=== PATIENT | female | born 1940 | race Caucasian/White ===

== ENCOUNTER 2019-06-19 14:54 | Inpatient (IN) | payer MEDICARE, OTHER ==
[2019-06-19] MEDS ORDERED: NORMAL SALINE 1000 ML 1,000 ML IV ONE (15:33)
--- NOTE | 2019-06-19 15:37 | ER Document Report ---
ED Medical Screen (RME) - General Chief Complaint: Altered Mental Status Stated Complaint: POSSIBLE URINARY ISSUE Time Seen by Provider: 06/19/19 15:26 Primary Care Provider: MAYO RATLIFF MD [Primary Care Provider] - Follow up as needed Mode of Arrival: Wheelchair Information source: Relative Notes: Patient presents with family members who state that patient has been confused for the past 6 days. Family member states that she has had urinary frequency and diarrhea. Patient has had malodorous urine and has had frequent falls recently. Patient does not take any anticoagulants. Family member state that she has been acting aggressive which is not normal for her. Family is concerned that she may have a UTI which is causing her symptoms. Family is also concerned that she is dehydrated as she has had decreased oral intake. Patient does have a history of dementia although behavior is abnormal for her baseline. hx: Dementia, TIA, arthritis, diverticulitis I have greeted and performed a rapid initial assessment of this patient. A comprehensive ED assessment and evaluation of the patient, analysis of test results and completion of the medical decision making process will be conducted by additional ED providers. TRAVEL OUTSIDE OF THE [place] IN LAST 30 DAYS: No - Related Data Allergies/Adverse Reactions: clarithromycin [From Biaxin] Adverse Reaction (Unknown, Verified 06/19/19 15:26) codeine [Codeine] Adverse Reaction (Unknown, Verified 06/19/19 15:26) Home Medications: Memantine. Donepezil. Vitamin D3 Past Medical History - Social History Chew tobacco use (# tins/day): No Frequency of alcohol use: None Drug Abuse: None - Past Medical History Cardiac Medical History: Denies: Hx Heart Attack, Hx Hypertension Pulmonary Medical History: Denies: Hx Asthma Neurological Medical History: Denies: Hx Cerebrovascular Accident, Hx Seizures GI Medical History: Denies: Hx Hepatitis, Hx Hiatal Hernia, Hx Ulcer Infectious Medical History: Denies: Hx Hepatitis Past Surgical History: Denies: Hx Mastectomy, Hx Open Heart Surgery, Hx Pacemaker Physical Exam - Vital signs Vitals: Temp Pulse Resp BP Pulse Ox 98.7 F 45 L 16 129/61 H 90 L 06/19/19 15:03 06/19/19 15:03 06/19/19 15:03 06/19/19 15:03 06/19/19 15:03 - General General appearance: Alert Notes: Confused, abrasion to back area, bruising to right knee Course - Vital Signs Vital signs: Temp Pulse Resp BP Pulse Ox 98.7 F 45 L 16 129/61 H 90 L 06/19/19 15:03 06/19/19 15:03 06/19/19 15:03 06/19/19 15:03 06/19/19 15:03 Doctor's Discharge - Discharge Referrals: MAYO RATLIFF MD [Primary Care Provider] - Follow up as needed
--- NOTE | 2019-06-19 16:04 | ER Document Report ---
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 She has relatively advanced dementia but was able to function reasonably at home until last week. She has had increasing generalized weakness for a week and urinary incontinence for 6 days. Stopped eating well 5 days ago and last few days not really eating. Continues to smoke. No fever. Son with Flu but she has not had flu symptoms. TRAVEL OUTSIDE OF THE [place] IN LAST 30 DAYS: No - Related Data Allergies/Adverse Reactions: clarithromycin [From Biaxin] Adverse Reaction (Unknown, Verified 06/19/19 15:26) codeine [Codeine] Adverse Reaction (Unknown, Verified 06/19/19 15:26) Home Medications: Memantine. Donepezil. Vitamin D3 Past Medical History - General Information source: Relative - Social History Smoking Status: Current Every Day Smoker Chew tobacco use (# tins/day): No Frequency of alcohol use: None Drug Abuse: None Family History: Reviewed & Not Pertinent Patient has suicidal ideation: No Patient has homicidal ideation: No - Past Medical History Cardiac Medical History: Denies: Hx Heart Attack, Hx Hypertension Pulmonary Medical History: Denies: Hx Asthma Neurological Medical History: Denies: Hx Cerebrovascular Accident, Hx Seizures GI Medical History: Denies: Hx Hepatitis, Hx Hiatal Hernia, Hx Ulcer Infectious Medical History: Denies: Hx Hepatitis Past Surgical History: Denies: Hx Mastectomy, Hx Open Heart Surgery, Hx Pacemaker Review of Systems - Review of Systems Constitutional: No symptoms reported EENT: No symptoms reported Cardiovascular: No symptoms reported Respiratory: No symptoms reported Gastrointestinal: No symptoms reported Genitourinary: No symptoms reported Female Genitourinary: No symptoms reported Musculoskeletal: No symptoms reported Skin: No symptoms reported Hematologic/Lymphatic: No symptoms reported Neurological/Psychological: No symptoms reported Physical Exam - Vital signs Vitals: Temp Pulse Resp BP Pulse Ox 98.7 F 45 L 16 129/61 H 90 L 06/19/19 15:03 06/19/19 15:03 06/19/19 15:03 06/19/19 15:03 06/19/19 15:03 Interpretation: Normal - General General appearance: Alert, Anxious, Other - Frail cachectic female in no distre ss. Confused at baseline but alert.. No: Appears well In distress: None - HEENT Head: Normocephalic, Atraumatic Eyes: Normal Pupils: PERRL - Respiratory Respiratory status: No respiratory distress Chest status: Nontender Breath sounds: Normal Chest palpation: Normal - Cardiovascular Rhythm: Regular Heart sounds: Normal auscultation Murmur: No - Abdominal Inspection: Normal Distension: No distension Bowel sounds: Normal Tenderness: Nontender Organomegaly: No organomegaly - Back Back: Normal, Nontender - Extremities General upper extremity: Normal inspection, Tender - right shoulder with decreased ROM and ? pain with movement. Difficult to tell and likely OA is present., Normal color, Normal ROM, Normal temperature General lower extremity: Normal inspection, Tender - tender knees bilat without deformity. + bruising., Normal color, Normal ROM, Normal temperature, Normal weight bearing. No: Jose's sign - Neurological Neuro grossly intact: Yes Cognition: Normal Orientation: AAOx4 [place] Coma Scale Eye Opening: Spontaneous Janice Coma Scale Verbal: Oriented Ajnice Coma Scale Motor: Obeys Commands Janice Coma Scale Total: 15 Speech: Normal Motor strength normal: LUE, RUE, LLE, RLE Sensory: Normal - Psychological Associated symptoms: Normal affect, Normal mood - Skin Skin Temperature: Warm Skin Moisture: Dry Skin Color: Normal Course - Re-evaluation Re-evalutation: 06/19/19 18:35 MDM This frail cachectic malnourished appearing female arrives from home with complaints of not acting her baseline. Due to that and falling frequently along with likely frail bridging dural veins I feel a ct of her head is reasonable in this lady. We have obtained one due to that. - Vital Signs Vital signs: Temp Pulse Resp BP Pulse Ox 99.4 F 45 L 21 H 131/104 H 95 06/19/19 19:12 06/19/19 15:03 06/19/19 16:33 06/19/19 16:33 06/19/19 16:52 - Laboratory Result Diagrams: 06/19/19 16:32 06/19/19 17:41 Laboratory results interpreted by me: 06/19/19 06/19/19 06/19/19 16:30 16:32 16:49 WBC 14.8 H RBC 5.65 H Hgb 17.2 H Hct 51.7 H RDW 14.3 H Seg Neuts % (Manual) 86 H Band Neutrophils % 2 L Lymphocytes % (Manual) 7 L Abs Neuts (Manual) 13.0 H Sodium Potassium Chloride BUN POC Glucose 138 H Total Bilirubin AST Alkaline Phosphatase Creatine Kinase Urine Protein 30 H Urine Ketones TRACE H Urine Blood MODERATE H Ur Leukocyte Esterase MODERATE H 06/19/19 17:41 WBC RBC Hgb Hct RDW Seg Neuts % (Manual) Band Neutrophils % Lymphocytes % (Manual) Abs Neuts (Manual) Sodium 147.2 H Potassium 3.5 L Chloride 112 H BUN 24 H POC Glucose Total Bilirubin 1.5 H AST 62 H Alkaline Phosphatase 127 H Creatine Kinase 409 H Urine Protein Urine Ketones Urine Blood Ur Leukocyte Esterase - Diagnostic Test Radiology reviewed: Reports reviewed - EKG Interpretation by Me EKG shows normal: Sinus rhythm Rate: Tachycardia - Sinus Nl [place] Repol Abnormality [address] elevation or depression my interpretation. Discharge - Discharge Clinical Impression: UTI (urinary tract infection), bacterial, Acute encephalopathy, Multiple contusions Disposition: ADMITTED INPATIENT Admitting Provider: [employer]CH[employer] Day Unit Admitted: Medical Floor
--- NOTE | 2019-06-19 16:26 | RADIOLOGY REPORT (SQ) ---
EXAM DESCRIPTION: SHOULDER RIGHT 2 OR MORE VIEWS COMPLETED DATE/TIME: 06/19/2019 4:14 pm REASON FOR STUDY: fall, shoulder inj COMPARISON: None. NUMBER OF VIEWS: Three views. TECHNIQUE: Internal rotation, external rotation, and Y view images acquired of the right shoulder. LIMITATIONS: None. FINDINGS: MINERALIZATION: Decreased. BONES: No acute fracture. No worrisome bone lesions. JOINTS: No dislocation. Mild glenohumeral and acromioclavicular osteoarthropathy. VISUALIZED LUNGS AND RIBS: No pneumothorax. No rib fracture. SOFT TISSUES: No radiopaque foreign body. OTHER: No other significant finding. IMPRESSION: No acute bony abnormality. Decreased osseous mineralization with mild acromioclavicular and glenohumeral osteoarthropathy. TECHNICAL DOCUMENTATION: JOB ID: [id number] [employer]- All Rights Reserved Reading location - IP/workstation name: [email or web address]
--- NOTE | 2019-06-19 16:28 | RADIOLOGY REPORT (SQ) ---
EXAM DESCRIPTION: CHEST 2 VIEWS COMPLETED DATE/TIME: 06/19/2019 4:14 pm REASON FOR STUDY: falls, AMS COMPARISON: None. EXAM PARAMETERS: NUMBER OF VIEWS: two views TECHNIQUE: Digital Frontal and Lateral radiographic views of the chest acquired. RADIATION DOSE: NA LIMITATIONS: none FINDINGS: LUNGS AND PLEURA: Chronic interstitial changes calcified right basilar granuloma. Emphyse matous with increased AP diameter. No pneumothorax. No large effusion. MEDIASTINUM AND HILAR STRUCTURES: No discrete mass. HEART AND VASCULAR STRUCTURES: Unfolded atherosclerotic thoracic aorta. Normal heart size. BONES: Decreased osseous mineralization. midthoracic compression deformity with greater than 60% ant erior height loss. HARDWARE: None in the chest. OTHER: No other significant finding. IMPRESSION: 1. Emphysematous change without definite acute cardiopulmonary process. 2. Midthoracic compression deformity with greater than 60% anterior height loss, chronicity uncertai n secondary to lack of priors. Recommend correlation with patient symptoms. TECHNICAL DOCUMENTATION: JOB ID: [id number] [employer]- All Rights Reserved Reading location - IP/workstation name: [email or web address]
--- NOTE | 2019-06-19 16:29 | RADIOLOGY REPORT (SQ) ---
EXAM DESCRIPTION: KNEE RIGHT 4 VIEWS COMPLETED DATE/TIME: 06/19/2019 4:14 pm REASON FOR STUDY: fall, r knee injury COMPARISON: None. NUMBER OF VIEWS: Four views. TECHNIQUE: AP, lateral, and both oblique radiographic images acquired of the right knee. LIMITATIONS: None. FINDINGS: MINERALIZATION: Decreased. BONES: No acute fracture or dislocation. No worrisome bone lesions. JOINT: No effusion. SOFT TISSUES: No soft tissue swelling. No radio-opaque foreign body. OTHER: No other significant finding. IMPRESSION: No evidence of acute bony abnormality of the right knee. TECHNICAL DOCUMENTATION: JOB ID: [id number] [employer]- All Rights Reserved Reading location - IP/workstation name: [email or web address]
--- NOTE | 2019-06-19 16:32 | RADIOLOGY REPORT (SQ) ---
EXAM DESCRIPTION: CT HEAD WITHOUT COMPLETED DATE/TIME: 06/19/2019 4:21 pm REASON FOR STUDY: fall, AMS COMPARISON: None. TECHNIQUE: Axial images acquired through the brain without intravenous contrast. Images reviewed wi th bone, brain and subdural windows. Additional sagittal and coronal reconstructions were generated. Images stored on PACS. All CT scanners at this facility use dose modulation, iterative reconstruction, and/or weight based d osing when appropriate to reduce radiation dose to as low as reasonably achievable (ALARA). [facility]: Dose Right [facility]: CareDose [facility]: Dose Right [facility]: Teradose 4D [facility]: Smart Voxware RADIATION DOSE: CT Rad equipment meets quality standard of care and radiation dose reduction techniq ues were employed. CTDIvol: 53.2 mGy. DLP: 937 mGy-cm.mGy. LIMITATIONS: None. FINDINGS: VENTRICLES: Prominent. CEREBRUM: No masses. No hemorrhage. No midline shift. Areas of low density in the white matter mos t likely due to chronic micro-vascular ischemic change. Hypoattenuation and encephalomalacia involvi ng the right temporal lobe most compatible with chronic infarct. No evidence for acute large vascula r territory infarction. CEREBELLUM: No masses. No hemorrhage. No alteration of density. No evidence for acute infarction. EXTRAAXIAL SPACES: Age-related involutional change. No fluid collections. No masses. ORBITS AND GLOBE: No intra- or extraconal masses. Normal contour of globe without masses. CALVARIUM: No fracture. PARANASAL SINUSES: No fluid or mucosal thickening. SOFT TISSUES: No mass or hematoma. OTHER: No other significant finding. IMPRESSION: CHRONIC RIGHT TEMPORAL INFARCT, PARENCHYMAL VOLUME LOSS AND SEQUELAE OF MICROANGIOPATHIC DISEASE. NO EVIDENCE OF ACUTE INTRACRANIAL PROCESS. EVIDENCE OF ACUTE STROKE: NO. TECHNICAL DOCUMENTATION: JOB ID: [id number] Quality ID # [id number]: Final reports with documentation of one or more dose reduction techniques (e.g., Au tomated exposure control, adjustment of the mA and/or kV according to patient size, use of iterative reconstruction technique) 2010 [email or web address]- All Rights Reserved Reading location - IP/workstation name: [email or web address]
[2019-06-19 17:04] LABS: HEMATOCRIT 51.7 % (36.0-47.0); HEMOGLOBIN 17.2 g/dL (12.0-15.5); MEAN CORPUSCULAR HEMOGLOBIN 30.4 pg (27.0-33.4); MEAN CORPUSCULAR HGB CONC 33.2 g/dL (32.0-36.0); MEAN CORPUSCULAR VOLUME 92 fl (80-97); PLATELET COUNT 319 10^3/uL (150-450); RED BLOOD COUNT 5.65 10^6/uL (3.72-5.28); RED CELL DISTRIBUTION WIDTH 14.3 % (11.5-14.0); WHITE BLOOD COUNT 14.8 10^3/uL (4.0-10.5)
[2019-06-19 17:22] LABS: ABSOLUTE MONOCYTES # (MANUAL) 0.7 10^3/uL (0.1-1.4); ANISOCYTOSIS SLIGHT; BAND NEUTROPHILS % (MANUAL) 2 % (3-5); BASOPHILS % (MANUAL) 0 % (0-2); EOSINOPHILS % (MANUAL) 0 % (0-6); LYMPHOCYTES % (MANUAL) 7 % (13-45); MONOCYTES % (MANUAL) 5 % (3-13); SEGMENTED NEUTROPHILS % (MAN) 86 % (42-78); TOTAL CELLS COUNTED 100
[2019-06-19 17:23] LABS: PLATELET COMMENT ADEQUATE
[2019-06-19 17:36] LABS: AMORPHOUS SEDIMENT,URINE TRACE /HPF; APPEARANCE,URINE SLIGHTLY-CLOUDY; BILIRUBIN,URINE NEGATIVE (NEGATIVE); COLOR,URINE YELLOW; GLUCOSE, URINE NEGATIVE (NEGATIVE); KETONES,URINE TRACE mg/dL (NEGATIVE); LEUKOCYTE ESTERASE,URINE MODERATE (NEGATIVE); NITRITE,URINE NEGATIVE (NEGATIVE); PROTEIN,URINE 30 mg/dL (NEGATIVE); URINE SPECIFIC GRAVITY 1.014; UROBILINOGEN,URINE NEGATIVE mg/dL (<2.0)
[2019-06-19] MEDS ORDERED: CEFTRIAXONE 1 GM/D5W RTU 1 GM/50 ML RTUPB IV ONE (17:43)
[2019-06-19 18:28] LABS: ANION GAP 10 (5-19); BILIRUBIN,DIRECT 0.4 mg/dL (0.0-0.4); BILIRUBIN,TOTAL 1.5 mg/dL (0.2-1.3); BLOOD UREA NITROGEN 24 mg/dL (7-20); CALCIUM 9.5 mg/dL (8.4-10.2); CARBON DIOXIDE 25 mmol/L (22-30); CHLORIDE 112 mmol/L (98-107); CREATINE KINASE 409 U/L (30-135); GLUCOSE 105 mg/dL (75-110); TOTAL PROTEIN 7.7 g/dL (6.3-8.2)
[2019-06-19] MEDS ORDERED: MAGNESIUM HYDROXIDE SUSP 30 ML UDCUP PO PRN (18:35)
[2019-06-19] MEDS ORDERED: NORMAL SALINE 1000 ML 1,000 ML IV PRN (18:35)
[2019-06-19] MEDS ORDERED: ACETAMINOPHEN 325 MG TABLET PO PRN (18:35)
[2019-06-19] MEDS ORDERED: ONDANSETRON HCL INJ/PF 4 MG/2 ML SDV IV PRN (18:35)
[2019-06-19 18:38] LABS: ALKALINE PHOSPHATASE 127 U/L (38-126); ASPARTATE AMINO TRANSFERASE 62 U/L (14-36); POTASSIUM 3.5 mmol/L (3.6-5.0)
--- NOTE | 2019-06-19 18:49 | PDOC H&P ---
History of Present Illness Admission Date/PCP: MAYO RATLIFF MD History of Present Illness: FITO RUFFIN is a 79 year old female who has a 7-year history of dementia,. Son gives me all of the history as patient is too confused and demented. Last week patient has been more confused however and is been falling more often.. He has actually seen the patient fall 3 times in the last week. Prior to this last week she was up and ambulatory even though she was demented. Somewhere in the last month she is also lost her dentures.. Patient is now mumbling which is a new physical finding and she is picking at her sheets. She smokes about a half a pack of cigarettes per day. Patient is a DNR. She is still currently lives at home but she has pretty much full-time caregivers. At time of discharge there may be some discussion about longterm facility. He has already been in this discussion. Patient's labs are not all back from the emergency room but I have gone ahead and admit her anyway, as it is 1845 hrs.. Count 14,800 H&H is stable Chemistry panel is pending. Urine shows moderate leukocytes moderate blood trace of ketones 30 protein Blood cultures and urine cultures are pending\ She will be admitted for IV gentle hydration broad-spectrum IV antibiotic. Son is aware that at the patient's medical condition and age this may be a life- threatening illness Past Medical History Cardiac Medical History: Denies: Myocardial Infarction, Hypertension Pulmonary Medical History: Denies: Asthma Neurological Medical History: Denies: Seizures GI Medical History: Denies: Hepatitis, Hiatal Hernia Hematology: Denies: Anemia, Sickle Cell Disease Past Surgical History Past Surgical History: Denies: Amputation, Mastectomy, Pacemaker Social History Smoking Status: Current Every Day Smoker Electronic Cigarette use?: No - Advance Directive Resuscitation Status: Do Not Resuscitate Family History Parental Family History Reviewed: No Children Family History Reviewed: No Sibling(s) Family History Reviewed.: No Medication/Allergy Home Medications: Aleve PRN 02/17/13 Allergies/Adverse Reactions: clarithromycin [From Biaxin] Adverse Reaction (Unknown, Verified 06/19/19 15:26) codeine [Codeine] Adverse Reaction (Unknown, Verified 06/19/19 15:26) Review of Systems Constitutional: PRESENT: weakness, weight loss Respiratory: ABSENT: cough, hemoptysis Gastrointestinal: ABSENT: abdominal pain, constipation, diarrhea, hematemesis, hematochezia, nausea, vomiting Genitourinary: PRESENT: other - Incontinent x6 days Physical Exam Vital Signs: Temp Pulse Resp BP Pulse Ox 98.7 F 45 L 21 H 131/104 H 95 06/19/19 15:03 06/19/19 15:03 06/19/19 16:33 06/19/19 16:33 06/19/19 16:52 Intake & Output 06/18/19 06/19/19 06/20/19 06:59 06:59 06:59 Intake Total 1000 Balance 1000 Weight 39.7 kg General appearance: PRESENT: mild distress, thin, other - Patient is mumbling and picking at the sheets patient does not seem to be aware of her surroundings. Son states that this is worse than usual Respiratory exam: PRESENT: clear to auscultation michelle. ABSENT: rales, rhonchi, wheezes Cardiovascular exam: PRESENT: RRR. ABSENT: diastolic murmur, rubs, systolic murmur Neurological exam: PRESENT: altered Psychiatric exam: PRESENT: other Results Laboratory Results: 06/19/19 16:32 06/19/19 17:41 06/19/19 06/19/19 06/19/19 16:32 16:32 16:49 WBC 14.8 H RBC 5.65 H Hgb 17.2 H Hct 51.7 H MCV 92 MCH 30.4 MCHC 33.2 RDW 14.3 H Plt Count 319 Seg Neutrophils % Not Reportable Sodium Cancelled Potassium Cancelled Chloride Cancelled Carbon Dioxide Cancelled Anion Gap Cancelled BUN Cancelled Creatinine Cancelled Est GFR ( Amer) Cancelled Est GFR (Non-Af Amer) Cancelled Glucose Cancelled Calcium Cancelled Total Bilirubin Cancelled AST Cancelled Alkaline Phosphatase Cancelled Total Protein Cancelled Albumin Cancelled Urine Color YELLOW Urine Appearance SLIGHTLY-CLOUDY Urine pH 5.0 Ur Specific [place] 1.014 Urine Protein 30 H Urine Glucose (UA) NEGATIVE Urine Ketones TRACE H Urine Blood MODERATE H Urine Nitrite NEGATIVE Ur Leukocyte Esterase MODERATE H Urine WBC (Auto) 100 Urine RBC (Auto) 15 06/19/19 17:41 WBC RBC Hgb Hct MCV MCH MCHC RDW Plt Count Seg Neutrophils % Sodium 147.2 H Potassium 3.5 L Chloride 112 H Carbon Dioxide 25 Anion Gap 10 BUN 24 H Creatinine 0.74 Est GFR ( Amer) > 60 Est GFR (Non-Af Amer) Glucose 105 Calcium 9.5 Total Bilirubin 1.5 H AST 62 H Alkaline Phosphatase 127 H Total Protein 7.7 Albumin 4.0 Urine Color Urine Appearance Urine pH Ur Specific [place] Urine Protein Urine Glucose (UA) Urine Ketones Urine Blood Urine Nitrite Ur Leukocyte Esterase Urine WBC (Auto) Urine RBC (Auto) 06/19/19 06/19/19 06/19/19 16:32 16:32 17:41 Creatine Kinase Cancelled 409 H Troponin I Cancelled Impressions: Chest X-Ray 06/19/19 15:32 IMPRESSION: 1. Emphysematous change without definite acute cardiopulmonary process. 2. Midthoracic compression deformity with greater than 60% anterior height loss, chronicity uncertain secondary to lack of priors. Recommend correlation with patient symptoms. Head CT 06/19/19 15:33 IMPRESSION: CHRONIC RIGHT TEMPORAL INFARCT, PARENCHYMAL VOLUME LOSS AND SEQUELAE OF MICROANGIOPATHIC DISEASE. NO EVIDENCE OF ACUTE INTRACRANIAL PROCESS. EVIDENCE OF ACUTE STROKE: NO. Knee X-Ray 06/19/19 15:34 IMPRESSION: No evidence of acute bony abnormality of the right knee. Shoulder X-Ray 06/19/19 15:34 IMPRESSION: No acute bony abnormality. Decreased osseous mineralization with mild acromioclavicular and glenohumeral osteoarthropathy. Assessment and Plan - Diagnosis (1) Chronic dementia Is this a current diagnosis for this admission?: Yes (2) Tobacco abuse Is this a current diagnosis for this admission?: Yes (3) Acute encephalopathy Is this a current diagnosis for this admission?: Yes (4) Multiple contusions Is this a current diagnosis for this admission?: Yes (5) UTI (urinary tract infection), bacterial Is this a current diagnosis for this admission?: Yes - Plan Summary Summary: Will be admitted for gentle hydration, and broad spectrum IV antibiotic. Patient is a DNR She may need to go to a longterm facility at the time of discharge. Told the son that it may take 5 days or more to get her in a condition to be discharged - Time Time Spent with patient: 35 or more minutes
[2019-06-19] MEDS ORDERED: POTASSI CL 20 MEQ/50 ML RIDER 20 MEQ/50 ML RTUPB IV ONE (19:05)
[2019-06-19] MEDS ORDERED: ACETAMINOPHEN 650 MG SUPP.RECT PR ONE (19:36)
--- NOTE | 2019-06-19 22:31 | EKG REPORT ---
SEVERITY:- ABNORMAL ECG - WANDERING PACEMAKER NONSPECIFIC REPOL ABNORMALITY, ANTERIOR LEADS : Confirmed by: Sandy Ibrahim MD 19-Jun-2019 22:30:15
[2019-06-19] MEDS: FAMOTIDINE 20 MG TABLET PO SCH ×2 (22:42→23:07)
[2019-06-19] MEDS: CEFTRIAXONE 1 GM/D5W RTU 1 GM/50 ML RTUPB IV SCH (22:42)
[2019-06-19] MEDS: POTASSI CL 20 MEQ/D5-1/2NS 1L 1,000 ML IV PRN (22:42)
[2019-06-19] MEDS: HEPARIN SOD (PORCINE) 5,000 UNIT/ML 1 ML VIAL SUBCUT SCH (22:42)
[2019-06-19 23:59] LABS: CREATINE KINASE MB 4.69 ng/mL (<4.55); TROPONIN I 0.087 ng/mL
[2019-06-20] MEDS: HEPARIN SOD (PORCINE) 5,000 UNIT/ML 1 ML VIAL SUBCUT SCH ×3 (05:21→21:34)
[2019-06-20 05:31] LABS: ABSOLUTE LYMPHOCYTES (AUTO) 0.8 10^3/uL (0.5-4.7); ABSOLUTE MONOCYTES (AUTO) 0.9 10^3/uL (0.1-1.4); ABSOLUTE NEUT (AUTO) 8.1 10^3/uL (1.7-8.2); BASOPHILS % (AUTO) 0.5 % (0-2); EOSINOPHILS % (AUTO) 0.2 % (0-6); HEMATOCRIT 40.7 % (36.0-47.0); LYMPHOCYTES % (AUTO) 8.5 % (13-45); MEAN CORPUSCULAR HEMOGLOBIN 30.9 pg (27.0-33.4); MEAN CORPUSCULAR HGB CONC 34.4 g/dL (32.0-36.0); MEAN CORPUSCULAR VOLUME 90 fl (80-97); MONOCYTES % (AUTO) 8.8 % (3-13); PLATELET COUNT 264 10^3/uL (150-450); RED BLOOD COUNT 4.54 10^6/uL (3.72-5.28); RED CELL DISTRIBUTION WIDTH 14.5 % (11.5-14.0); TOTAL CELLS COUNTED % (AUTO) 100 %; WHITE BLOOD COUNT 9.9 10^3/uL (4.0-10.5)
[2019-06-20 05:55] LABS: ANION GAP 9 (5-19); BLOOD UREA NITROGEN 20 mg/dL (7-20); CALCIUM 8.4 mg/dL (8.4-10.2); CARBON DIOXIDE 23 mmol/L (22-30); CHLORIDE 116 mmol/L (98-107); CREATINE KINASE 257 U/L (30-135); GLUCOSE 193 mg/dL (75-110)
[2019-06-20 05:56] LABS: POTASSIUM 2.9 mmol/L (3.6-5.0)
[2019-06-20 06:00] LABS: CREATINE KINASE MB 3.58 ng/mL (<4.55); TROPONIN I 0.06 ng/mL
[2019-06-20] MEDS: POTASSIUM CHLORIDE 20 MEQ PACKET PO SCH ×3 (08:13→17:03)
[2019-06-20] MEDS: CEFTRIAXONE 1 GM/D5W RTU 1 GM/50 ML RTUPB IV SCH ×2 (09:15→21:34)
[2019-06-20] MEDS: POTASSI CL 20 MEQ/D5-1/2NS 1L 1,000 ML IV PRN ×2 (09:15→19:10)
[2019-06-20] MEDS: FAMOTIDINE 20 MG TABLET PO SCH ×2 (09:17→21:35)
[2019-06-20] MEDS ORDERED: DOCUSATE SODIUM 100 MG CAPSULE PO SCH (10:00)
[2019-06-20 13:04] LABS: CREATINE KINASE MB 2.86 ng/mL (<4.55); TROPONIN I 0.041 ng/mL
[2019-06-20] MEDS ORDERED: HALOPERIDOL LACTATE INJ 5 MG/1 ML VIAL IV ONE (13:07)
[2019-06-20] MEDS ORDERED: QUETIAPINE FUMARATE 25 MG TABLET PO PRN (14:52)
[2019-06-20] MEDS ORDERED: NA PHOS,M-B/NA PHOS,DI-BA (ADULT) 133 ML ENEMA PR PRN (15:13)
[2019-06-20] MEDS ORDERED: NA PHOS,M-B/NA PHOS,DI-BA (ADULT) 133 ML ENEMA PR ONE (15:30)
[2019-06-20] MEDS: DOCUSATE SODIUM 100 MG CAPSULE PO SCH (17:03)
[2019-06-20] MEDS ORDERED: LORAZEPAM INJ 2 MG/1 ML VIAL IV PRN (22:40)
--- NOTE | 2019-06-20 22:50 | PDOC PROGRESS REPORT ---
Subjective Progress Note for:: 06/20/19 Subjective:: The patient had a 79-year-old female with a past medical history of dementia, who is ambulatory at baseline, nonverbal, continues to be tobacco dependent and was admitted to the hospitalist service 06/19/2019 for increased falls, acute encephalopathy, and urinary tract infection. Patient was seen on morning rounds. She was found resting in bed comfortably on room air. She was awake, alert oriented to self, attempted to respond to my conversations, but incoherently. She does not answer questions or follow directions at this time. She was able to eat breakfast with some assistance today. ROS is otherwise limited. She does appear to be comfortable and is not noted to be in any acute distress. Per nursing, concern for possible constipation; large volume of hard stools noted. Reason For Visit: URINARY TRACT INFECTION,DEMENTIA,MENTAL STATUS Physical Exam Vital Signs: Temp Pulse Resp BP Pulse Ox 98.9 F 99 22 H 108/81 95 06/20/19 20:56 06/20/19 20:56 06/20/19 20:56 06/20/19 20:56 06/20/19 20:56 Intake & Output 06/19/19 06/20/19 06/21/19 06:59 06:59 06:59 Intake Total 2100 1250 Balance 2100 1250 Weight 39.5 kg General appearance: PRESENT: no acute distress, thin - Cachectic, well-developed Head exam: PRESENT: atraumatic, normocephalic Eye exam: PRESENT: conjunctiva pink, EOMI, PERRLA. ABSENT: scleral icterus Ear exam: PRESENT: normal external ear exam Mouth exam: PRESENT: dry mucosa, tongue midline Respiratory exam: PRESENT: clear to auscultation michelle, symmetrical, unlabored. ABSENT: rales, rhonchi, wheezes Cardiovascular exam: PRESENT: RRR. ABSENT: diastolic murmur, rubs, systolic murmur Vascular exam: PRESENT: normal capillary refill GI/Abdominal exam: PRESENT: distended, firm, hypoactive bowel sounds. ABSENT: guarding, mass, organolmegaly, rebound, tenderness Rectal exam: PRESENT: deferred Extremities exam: PRESENT: full ROM. ABSENT: calf tenderness, clubbing, pedal edema Neurological exam: PRESENT: alert, awake, oriented to person, CN II-XII grossly intact. ABSENT: oriented to place, oriented to time, oriented to situation, motor sensory deficit Psychiatric exam: PRESENT: appropriate affect, normal mood. ABSENT: homicidal ideation, suicidal ideation Skin exam: PRESENT: dry, intact, warm. ABSENT: cyanosis, rash Results Laboratory Results: 06/20/19 05:00 06/20/19 05:00 06/20/19 06/20/19 05:00 05:00 WBC 9.9 RBC 4.54 Hgb 14.0 D Hct 40.7 MCV 90 MCH 30.9 MCHC 34.4 RDW 14.5 H Plt Count 264 Seg Neutrophils % 82.0 H Sodium 147.5 H Potassium 2.9 L* Chloride 116 H Carbon Dioxide 23 Anion Gap 9 BUN 20 Creatinine 0.69 Est GFR ( Amer) > 60 Glucose 193 H Calcium 8.4 06/19/19 16:49 Catheterized Urine Urine Culture - Final Group B Beta Streptococcus 06/19/19 06/19/19 06/19/19 16:32 16:32 17:41 Creatine Kinase Cancelled 409 H CK-MB (CK-2) Troponin I Cancelled 06/19/19 06/19/19 06/19/19 20:52 23:12 23:12 Creatine Kinase 342 H CK-MB (CK-2) 4.69 H Troponin I 0.079 0.087 06/20/19 06/20/19 06/20/19 05:00 05:00 12:10 Creatine Kinase 257 H 205 H CK-MB (CK-2) 3.58 Troponin I 0.060 06/20/19 12:10 Creatine Kinase CK-MB (CK-2) 2.86 Troponin I 0.041 Impressions: Chest X-Ray 06/19/19 15:32 IMPRESSION: 1. Emphysematous change without definite acute cardiopulmonary process. 2. Midthoracic compression deformity with greater than 60% anterior height loss, chronicity uncertain secondary to lack of priors. Recommend correlation with patient symptoms. Head CT 06/19/19 15:33 IMPRESSION: CHRONIC RIGHT TEMPORAL INFARCT, PARENCHYMAL VOLUME LOSS AND SEQUELAE OF MICROANGIOPATHIC DISEASE. NO EVIDENCE OF ACUTE INTRACRANIAL PROCESS. EVIDENCE OF ACUTE STROKE: NO. Knee X-Ray 06/19/19 15:34 IMPRESSION: No evidence of acute bony abnormality of the right knee. Shoulder X-Ray 06/19/19 15:34 IMPRESSION: No acute bony abnormality. Decreased osseous mineralization with mild acromioclavicular and glenohumeral osteoarthropathy. Assessment and Plan - Diagnosis (1) UTI (urinary tract infection), bacterial Is this a current diagnosis for this admission?: Yes Plan: Urinalysis is positive for UTI. Urine culture shows group B streptococcus. Leukocytosis is already resolved. We will continue IV ceftriaxone; day #2. Course of therapy should be complete after her third dose tomorrow. Continue gentle IV fluids. Encourage p.o. intake. (2) Acute encephalopathy Is this a current diagnosis for this admission?: Yes Plan: Likely secondary to urinary tract infection, constipation, dehydration in the presence of advanced dementia. Unfortunately, the patient was pulling at lines and attempting to get out of bed today. She is not redirectable. I do have significant concern patient may accidentally because of self-harm through additional falls. Attempted Haldol 3 mg IV without effect. She did not respond to Seroquel 25 mg p.o. Therefore, will allow for low-dose Ativan 0.5 mg IV as needed. Have asked for a one-to-one sitter for safety. Nursing has notified the nursing cistern room working supervisor and requested that the patient's roommate be moved closer to the nursing station. Fall precautions. (3) Chronic dementia Is this a current diagnosis for this admission?: Yes Plan: Continue patient home medication regiment. Supportive care. Fall precautions. Remaining management as above. (4) Multiple contusions Is this a current diagnosis for this admission?: Yes Plan: Secondary to multiple falls at home. Wound care per nursing protocol as indicated. (5) Tobacco abuse Is this a current diagnosis for this admission?: Yes Plan: Nicotine replacement therapies provided. (6) Hypokalemia Is this a current diagnosis for this admission?: Yes Plan: Potassium of 2.9 today; possibly contributing to the patient multiple falls secondary to generalized weakness. Received combination oral and IV replacement today. We will check magnesium level. Follow-up chemistry. - Plan Summary Summary: Will be admitted for gentle hydration, and broad spectrum IV antibiotic. Leticia paredes is a DNR She may need to go to a [facility] facility at the time of discharge. Told the son that it may take 5 days or more to get her in a condition to be discharged - Time Time Spent with patient: 25-34 minutes Medications reviewed and adjusted accordingly: Yes Anticipated discharge: Home with Homehealth Within: within 48 hours
[2019-06-21] MEDS: POTASSI CL 20 MEQ/D5-1/2NS 1L 1,000 ML IV PRN ×2 (03:29→14:17)
[2019-06-21] MEDS: HEPARIN SOD (PORCINE) 5,000 UNIT/ML 1 ML VIAL SUBCUT SCH ×3 (05:20→21:17)
[2019-06-21 06:19] LABS: HEMATOCRIT 39.5 % (36.0-47.0); HEMOGLOBIN 13.4 g/dL (12.0-15.5); MEAN CORPUSCULAR HEMOGLOBIN 30.5 pg (27.0-33.4); MEAN CORPUSCULAR HGB CONC 33.9 g/dL (32.0-36.0); MEAN CORPUSCULAR VOLUME 90 fl (80-97); PLATELET COUNT 276 10^3/uL (150-450); RED BLOOD COUNT 4.38 10^6/uL (3.72-5.28); RED CELL DISTRIBUTION WIDTH 14.3 % (11.5-14.0); WHITE BLOOD COUNT 10.6 10^3/uL (4.0-10.5)
[2019-06-21 06:48] LABS: ANION GAP 7 (5-19); BLOOD UREA NITROGEN 12 mg/dL (7-20); CALCIUM 8.3 mg/dL (8.4-10.2); CARBON DIOXIDE 23 mmol/L (22-30); CHLORIDE 114 mmol/L (98-107); GLUCOSE 152 mg/dL (75-110); POTASSIUM 3.3 mmol/L (3.6-5.0)
[2019-06-21] MEDS ORDERED: POTASSIUM CHLORIDE 20 MEQ PACKET PO ONE (12:00)
--- NOTE | 2019-06-21 12:27 | RADIOLOGY REPORT (SQ) ---
EXAM DESCRIPTION: KUB/ABDOMEN (SINGLE VIEW) COMPLETED DATE/TIME: 06/21/2019 10:49 am REASON FOR STUDY: ABd distention, pain COMPARISON: None. NUMBER OF VIEWS: One view. TECHNIQUE: Supine radiographic image of the abdomen acquired. LIMITATIONS: None. FINDINGS: BOWEL GAS PATTERN: Nonobstructive bowel gas pattern with a moderate burden of fecal materi al within the colon and rectum - correlate clinically for constipation. CALCIFICATIONS: There is an oval calcification that projects within the inferior aspect of the right renal fossa and measures 13 x 8 9 mm. SOFT TISSUES: There surgical clips that project within the gallbladder fossa. HARDWARE: None in the abdomen. BONES: Osteopenia and degenerative spondylosis of the lumbar spine. OTHER: No other finding. IMPRESSION: Nonobstructive bowel gas pattern with a moderate burden of fecal material within the col on and rectum - correlate clinically for constipation. TECHNICAL DOCUMENTATION: JOB ID: [id number] [employer]- All Rights Reserved Reading location - IP/workstation name: [email or web address]
[2019-06-21] MEDS: CEFTRIAXONE 1 GM/D5W RTU 1 GM/50 ML RTUPB IV SCH ×2 (14:16→21:17)
[2019-06-21] MEDS: NICOTINE 14 MG/24 HR PATCH.TD24 TD SCH (14:30)
[2019-06-21] MEDS: DOCUSATE SODIUM 100 MG CAPSULE PO SCH ×2 (14:30→19:38)
[2019-06-21] MEDS: FAMOTIDINE 20 MG TABLET PO SCH ×2 (14:31→21:13)
[2019-06-21] MEDS: MULTIVITAMIN TABLET PO SCH (14:32)
[2019-06-21] MEDS ORDERED: (PENDING PHARMACY ID) (Memantine Hcl [Memantine Hcl Er] 28 MG) PO SCH (17:00)
[2019-06-21] MEDS: DONEPEZIL HCL 5 MG TABLET PO SCH (17:40)
--- NOTE | 2019-06-21 18:31 | PDOC PROGRESS REPORT ---
Subjective Progress Note for:: 06/21/19 Subjective:: The patient had a 79-year-old female with a past medical history of dementia, who is ambulatory at baseline, nonverbal, continues to be tobacco dependent and was admitted to the hospitalist service 06/19/2019 for increased falls, acute encephalopathy, and urinary tract infection. Patient was seen on morning rounds. She was found resting in bed comfortably on room air. She was drowsy, but arousable. She was oriented to self, attempted to respond to my conversations, but mostly incoherently. She did answer yes when asked if she was in pain but could not localize or provide any further details. She does not follow directions. ROS is otherwise limited. She does appear to be comfortable and is not noted to be in any acute distress. Per nursing, concern for possible constipation; large volume of hard stools noted. Continues to have abdominal distention, although soft today. Reason For Visit: URINARY TRACT INFECTION,DEMENTIA,MENTAL STATUS Physical Exam Vital Signs: Temp Pulse Resp BP Pulse Ox 99.2 F 79 14 114/72 96 06/21/19 15:17 06/21/19 15:17 06/21/19 12:39 06/21/19 15:17 06/21/19 15:17 Intake & Output 06/20/19 06/21/19 06/22/19 06:59 06:59 06:59 Intake Total 2100 2300 1000 Balance 2100 2300 1000 Weight 39.5 kg 42.2 kg General appearance: PRESENT: no acute distress, cooperative, thin - Cachectic, well-developed Head exam: PRESENT: atraumatic, normocephalic Eye exam: PRESENT: conjunctiva pink, EOMI, PERRLA. ABSENT: scleral icterus Mouth exam: PRESENT: moist, tongue midline Teeth exam: PRESENT: poor dentation Respiratory exam: PRESENT: clear to auscultation michelle, symmetrical, unlabored. ABSENT: rales, rhonchi, wheezes Cardiovascular exam: PRESENT: RRR. ABSENT: diastolic murmur, rubs, systolic murmur Pulses: PRESENT: normal dorsalis pedis pul Vascular exam: PRESENT: normal capillary refill GI/Abdominal exam: PRESENT: distended, hyperactive bowel sounds, soft. ABSENT: guarding, mass, organolmegaly, rebound, tenderness Rectal exam: PRESENT: deferred Extremities exam: PRESENT: full ROM. ABSENT: calf tenderness, clubbing, pedal edema Neurological exam: PRESENT: alert, awake, oriented to person, CN II-XII grossly intact, other - Likely at baseline. ABSENT: motor sensory deficit Psychiatric exam: PRESENT: appropriate affect, normal mood. ABSENT: homicidal ideation, suicidal ideation Skin exam: PRESENT: dry, intact, warm. ABSENT: cyanosis, rash Results Laboratory Results: 06/21/19 05:27 06/21/19 05:27 06/21/19 06/21/19 05:27 05:27 WBC 10.6 H RBC 4.38 Hgb 13.4 Hct 39.5 MCV 90 MCH 30.5 MCHC 33.9 RDW 14.3 H Plt Count 276 Sodium 144.2 Potassium 3.3 L Chloride 114 H Carbon Dioxide 23 Anion Gap 7 BUN 12 Creatinine 0.61 Est GFR ( Amer) > 60 Glucose 152 H Calcium 8.3 L Magnesium 2.0 06/19/19 16:49 Catheterized Urine Urine Culture - Final Group B Beta Streptococcus 06/19/19 06/19/19 06/19/19 16:32 16:32 17:41 Creatine Kinase Cancelled 409 H CK-MB (CK-2) Troponin I Cancelled 06/19/19 06/19/19 06/19/19 20:52 23:12 23:12 Creatine Kinase 342 H CK-MB (CK-2) 4.69 H Troponin I 0.079 0.087 06/20/19 06/20/19 06/20/19 05:00 05:00 12:10 Creatine Kinase 257 H 205 H CK-MB (CK-2) 3.58 Troponin I 0.060 06/20/19 12:10 Creatine Kinase CK-MB (CK-2) 2.86 Troponin I 0.041 Impressions: Chest X-Ray 06/19/19 15:32 IMPRESSION: 1. Emphysematous change without definite acute cardiopulmonary process. 2. Midthoracic compression deformity with greater than 60% anterior height loss, chronicity uncertain secondary to lack of priors. Recommend correlation with patient symptoms. Head CT 06/19/19 15:33 IMPRESSION: CHRONIC RIGHT TEMPORAL INFARCT, PARENCHYMAL VOLUME LOSS AND SEQUELAE OF MICROANGIOPATHIC DISEASE. NO EVIDENCE OF ACUTE INTRACRANIAL PROCESS. EVIDENCE OF ACUTE STROKE: NO. Knee X-Ray 06/19/19 15:34 IMPRESSION: No evidence of acute bony abnormality of the right knee. Shoulder X-Ray 06/19/19 15:34 IMPRESSION: No acute bony abnormality. Decreased osseous mineralization with mild acromioclavicular and glenohumeral osteoarthropathy. KUB X-Ray 06/21/19 00:00 IMPRESSION: Nonobstructive bowel gas pattern with a moderate burden of fecal material within the colon and rectum - correlate clinically for constipation. Assessment and Plan - Diagnosis (1) UTI (urinary tract infection), bacterial Is this a current diagnosis for this admission?: Yes Plan: Urinalysis is positive for UTI. Urine culture shows group B streptococcus. Leukocytosis is already resolved. We will continue IV ceftriaxone; day #3. We will have completed full course of therapy following today's dose. Continue gentle IV fluids. Encourage p.o. intake. (2) Acute encephalopathy Is this a current diagnosis for this admission?: Yes Plan: Improving. Likely secondary to urinary tract infection, constipation, dehydration in the p resence of advanced dementia. Unfortunately, the patient was pulling at lines and attempting to get out of bed today. She is not redirectable. I do have significant concern patient may accidentally because of self-harm through additional falls. Will allow for low-dose Ativan 0.5 mg IV as needed for agitation concerning for potential fall or accidental self-harm.. Have asked for a one-to-one sitter for safety. Nursing has notified the nursing electric motor repair supervisor and requested that the patient's roommate be moved closer to the nursing station. Fall precautions. (3) Chronic dementia Is this a current diagnosis for this admission?: Yes Plan: Likely approaching baseline. Continue patient home medication regiment. Supportive care. Fall precautions. Remaining management as above. (4) Multiple contusions Is this a current diagnosis for this admission?: Yes Plan: Secondary to multiple falls at home. Wound care per nursing protocol as indicated. (5) Tobacco abuse Is this a current diagnosis for this admission?: Yes Plan: Nicotine replacement therapies provided. (6) Hypokalemia Is this a current diagnosis for this admission?: Yes Plan: Significantly improved. Potassium of 2.9 today; possibly contributing to the patient multiple falls secondary to generalized weakness. Potassium 3.3 today. Magnesium 2.0. Additional oral replacement today. Follow-up chemistry. (7) Constipation Is this a current diagnosis for this admission?: Yes Plan: KUB reveals large stool burden. Continue Colace twice daily. Molasses enema. - Time Time Spent with patient: 25-34 minutes Medications reviewed and adjusted accordingly: Yes Anticipated discharge: Home with Homehealth Within: within 24 hours - Pending resolution of abdominal discomfort/constipation and increased alertness/awareness. Patient has advanced dementia at baseline but is ambulatory.
[2019-06-22] MEDS: POTASSI CL 20 MEQ/D5-1/2NS 1L 1,000 ML IV PRN (00:39)
[2019-06-22] MEDS ORDERED: INFLUENZA QUAD (6MOS+) 2019-20 VAC 0.5 ML SYR IM ONE (01:39)
[2019-06-22] MEDS: HEPARIN SOD (PORCINE) 5,000 UNIT/ML 1 ML VIAL SUBCUT SCH ×3 (05:46→21:47)
[2019-06-22 06:21] LABS: ANION GAP 6 (5-19); BLOOD UREA NITROGEN 6 mg/dL (7-20); CALCIUM 8.3 mg/dL (8.4-10.2); CARBON DIOXIDE 22 mmol/L (22-30); CHLORIDE 114 mmol/L (98-107); GLUCOSE 129 mg/dL (75-110); POTASSIUM 3.1 mmol/L (3.6-5.0)
[2019-06-22] MEDS ORDERED: NORMAL SALINE 1000 ML 1,000 ML IV PRN ×2 (08:03→11:11)
[2019-06-22] MEDS ORDERED: POTASSIUM CHLORIDE 20 MEQ PACKET PO ONE (09:00)
[2019-06-22] MEDS ORDERED: MAGNESIUM HYDROXIDE SUSP 30 ML UDCUP PO ONE (10:30)
[2019-06-22] MEDS ORDERED: BISACODYL 10 MG SUPP.RECT PR ONE ×2 (10:30→18:30)
[2019-06-22] MEDS ORDERED: DOCUSATE SODIUM 100 MG CAPSULE PO SCH (11:00)
[2019-06-22] MEDS: DOCUSATE SODIUM 100 MG CAPSULE PO SCH ×2 (13:36→17:50)
[2019-06-22] MEDS: FAMOTIDINE 20 MG TABLET PO SCH ×2 (13:37→21:47)
[2019-06-22] MEDS: CEFTRIAXONE 1 GM/D5W RTU 1 GM/50 ML RTUPB IV SCH (13:37)
[2019-06-22] MEDS: NICOTINE 14 MG/24 HR PATCH.TD24 TD SCH (13:38)
[2019-06-22] MEDS: MULTIVITAMIN TABLET PO SCH (13:38)
--- NOTE | 2019-06-22 15:07 | PDOC PROGRESS REPORT ---
Subjective Progress Note for:: 06/22/19 Subjective:: The patient had a 79-year-old female with a past medical history of dementia, who is ambulatory at baseline, nonverbal, continues to be tobacco dependent and was admitted to the hospitalist service 06/19/2019 for increased falls, acute encephalopathy, and urinary tract infection. Patient was seen on morning rounds. She was found resting in bed comfortably on room air. She was drowsy, but arousable. She was oriented to self, but otherwise disoriented. She was conversational today; was able to tell me that she was not in pain, not interested in breakfast, and tired this morning. ROS is otherwise limited. She does appear to be comfortable and is not noted to be in any acute distress. Per nursing, the patient was agitated last night and did receive IV Ativan around 10 PM and has been sleeping soundly since. Reason For Visit: URINARY TRACT INFECTION,DEMENTIA,MENTAL STATUS Physical Exam Vital Signs: Temp Pulse Resp BP Pulse Ox 98.7 F 61 16 122/82 94 06/22/19 06:40 06/22/19 06:57 06/22/19 06:40 06/22/19 06:40 06/22/19 06:40 Intake & Output 06/21/19 06/22/19 06/23/19 06:59 06:59 06:59 Intake Total 2300 2100 Balance 2300 2100 Weight 42.2 kg 42.9 kg General appearance: PRESENT: no acute distress, cooperative, thin - Cachectic, well-developed Head exam: PRESENT: atraumatic, normocephalic Eye exam: PRESENT: conjunctiva pink, EOMI, PERRLA. ABSENT: scleral icterus Ear exam: PRESENT: normal external ear exam Mouth exam: PRESENT: moist, tongue midline Teeth exam: PRESENT: poor dentation Respiratory exam: PRESENT: clear to auscultation michelle, symmetrical, unlabored. ABSENT: rales, rhonchi, wheezes Cardiovascular exam: PRESENT: RRR, +S1, +S2. ABSENT: diastolic murmur, rubs, systolic murmur Pulses: PRESENT: normal dorsalis pedis pul Vascular exam: PRESENT: normal capillary refill GI/Abdominal exam: PRESENT: distended - improved from yesterday, normal bowel sounds, soft. ABSENT: guarding, mass, organolmegaly, rebound, tenderness Rectal exam: PRESENT: deferred Extremities exam: PRESENT: full ROM. ABSENT: calf tenderness, clubbing, pedal edema Neurological exam: PRESENT: alert, awake, oriented to person, CN II-XII grossly intact, other - improved alertness, socially appropriate, follows simple directions. ABSENT: motor sensory deficit Psychiatric exam: PRESENT: appropriate affect, normal mood. ABSENT: homicidal ideation, suicidal ideation Skin exam: PRESENT: dry, intact, warm. ABSENT: cyanosis, rash Results Laboratory Results: 06/21/19 05:27 06/22/19 05:14 06/22/19 05:14 Sodium 142.3 Potassium 3.1 L Chloride 114 H Carbon Dioxide 22 Anion Gap 6 BUN 6 L Creatinine 0.52 Est GFR ( Amer) > 60 Glucose 129 H Calcium 8.3 L 06/19/19 06/19/19 06/19/19 16:32 16:32 17:41 Creatine Kinase Cancelled 409 H CK-MB (CK-2) Troponin I Cancelled 06/19/19 06/19/19 06/19/19 20:52 23:12 23:12 Creatine Kinase 342 H CK-MB (CK-2) 4.69 H Troponin I 0.079 0.087 06/20/19 06/20/19 06/20/19 05:00 05:00 12:10 Creatine Kinase 257 H 205 H CK-MB (CK-2) 3.58 Troponin I 0.060 06/20/19 12:10 Creatine Kinase CK-MB (CK-2) 2.86 Troponin I 0.041 Impressions: Chest X-Ray 06/19/19 15:32 IMPRESSION: 1. Emphysematous change without definite acute cardiopulmonary process. 2. Midthoracic compression deformity with greater than 60% anterior height loss, chronicity uncertain secondary to lack of priors. Recommend correlation with patient symptoms. Head CT 06/19/19 15:33 IMPRESSION: CHRONIC RIGHT TEMPORAL INFARCT, PARENCHYMAL VOLUME LOSS AND SEQUELAE OF MICROANGIOPATHIC DISEASE. NO EVIDENCE OF ACUTE INTRACRANIAL PROCESS. EVIDENCE OF ACUTE STROKE: NO. Knee X-Ray 06/19/19 15:34 IMPRESSION: No evidence of acute bony abnormality of the right knee. Shoulder X-Ray 06/19/19 15:34 IMPRESSION: No acute bony abnormality. Decreased osseous mineralization with mild acromioclavicular and glenohumeral osteoarthropathy. KUB X-Ray 06/21/19 00:00 IMPRESSION: Nonobstructive bowel gas pattern with a moderate burden of fecal material within the colon and rectum - correlate clinically for constipation. Assessment and Plan - Diagnosis (1) UTI (urinary tract infection), bacterial Is this a current diagnosis for this admission?: Yes Plan: Urinalysis is positive for UTI. Urine culture shows group B streptococcus. Leukocytosis has resolved. Received 3 days of IV Rocephin. Continue gentle IV fluids. Encourage p.o. intake. (2) Acute encephalopathy Is this a current diagnosis for this admission?: Yes Plan: Improving; now alert to self, conversational and socially appropriate. Likely secondary to urinary tract infection, constipation, dehydration in the presence of advanced dementia. Have asked for a one-to-one sitter for safety. Nursing has notified the nursing field pipe lines supervisor and requested that the patient's roommate be moved closer to the nursing station. Fall precautions. (3) Chronic dementia Is this a current diagnosis for this admission?: Yes Plan: Likely approaching baseline. Continue patient home medication regiment. Supportive care. Fall precautions. Remaining management as above. (4) Multiple contusions Is this a current diagnosis for this admission?: Yes Plan: Secondary to multiple falls at home. Wound care per nursing protocol as indicated. (5) Tobacco abuse Is this a current diagnosis for this admission?: Yes Plan: Nicotine replacement therapies provided. (6) Hypokalemia Is this a current diagnosis for this admission?: Yes Plan: Gradual improvements; 3.5-> 2.9-> 3.3-> 3.1 Magnesium 2.0. Additional oral replacement today. Encourage p.o. intake. Follow-up chemistry. (7) Constipation Is this a current diagnosis for this admission?: Yes Plan: KUB revealed large stool burden; large output yesterday. Continue Colace twice daily. Milk of Mag today. Dulcolax suppository x 1. Molasses enema x 1 (8) Urinary retention Is this a current diagnosis for this admission?: Yes Plan: Acute urinary retention. Likely secondary to UTI and massive constipation. Will repeat UA Start Flomax Bladder scan every 6 hours and straight cath as needed. - Time Time Spent with patient: 25-34 minutes Medications reviewed and adjusted accordingly: Yes Anticipated discharge: Home with Homehealth Within: within 48 hours
[2019-06-22] MEDS: DONEPEZIL HCL 5 MG TABLET PO SCH (17:49)
[2019-06-22] MEDS: TAMSULOSIN HCL 0.4 MG CAP.SR.24H PO SCH (17:49)
[2019-06-23 05:51] LABS: ANION GAP 5 (5-19); BLOOD UREA NITROGEN 7 mg/dL (7-20); CALCIUM 8.7 mg/dL (8.4-10.2); CARBON DIOXIDE 29 mmol/L (22-30); CHLORIDE 112 mmol/L (98-107); GLUCOSE 93 mg/dL (75-110); POTASSIUM 3.1 mmol/L (3.6-5.0)
[2019-06-23] MEDS: HEPARIN SOD (PORCINE) 5,000 UNIT/ML 1 ML VIAL SUBCUT SCH ×3 (05:58→21:29)
[2019-06-23] MEDS ORDERED: POTASSIUM CHLORIDE 20 MEQ PACKET PO ONE (08:30)
[2019-06-23 14:41] LABS: APPEARANCE,URINE CLEAR; BILIRUBIN,URINE NEGATIVE (NEGATIVE); COLOR,URINE YELLOW; GLUCOSE, URINE NEGATIVE (NEGATIVE); KETONES,URINE NEGATIVE (NEGATIVE); PROTEIN,URINE NEGATIVE (NEGATIVE); URINE SPECIFIC GRAVITY 1.009; UROBILINOGEN,URINE NEGATIVE mg/dL (<2.0)
[2019-06-23] MEDS: NICOTINE 14 MG/24 HR PATCH.TD24 TD SCH (17:46)
[2019-06-23] MEDS: FAMOTIDINE 20 MG TABLET PO SCH ×2 (17:46→21:23)
[2019-06-23] MEDS: DOCUSATE SODIUM 100 MG CAPSULE PO SCH ×2 (17:46→21:28)
[2019-06-23] MEDS: MULTIVITAMIN TABLET PO SCH (17:47)
--- NOTE | 2019-06-23 19:16 | PDOC PROGRESS REPORT ---
Subjective Progress Note for:: 06/23/19 Subjective:: The patient had a 79-year-old female with a past medical history of dementia, who is ambulatory at baseline, nonverbal, continues to be tobacco dependent and was admitted to the hospitalist service 06/19/2019 for increased falls, acute encephalopathy, and urinary tract infection. Patient was seen on morning rounds. She was found resting in bed comfortably on room air. She was A&O to self. She is conversational and socially appropriate. She answers simple questions and follow simple directions today. She denies pain, difficulty breathing and nausea. ROS is otherwise limited. She does appear to be comfortable and is not noted to be in any acute distress. No concerns per nursing. Does continue to require straight caths for urinary retention. Reason For Visit: URINARY TRACT INFECTION,DEMENTIA,MENTAL STATUS Physical Exam Vital Signs: Temp Pulse Resp BP Pulse Ox 97.5 F 110 H 16 137/63 H 98 06/23/19 07:47 06/23/19 14:00 06/23/19 07:47 06/23/19 07:47 06/23/19 07:47 Intake & Output 06/22/19 06/23/19 06/24/19 06:59 06:59 06:59 Intake Total 2100 100 Output Total 2650 Balance 2100 -2550 Weight 42.9 kg 40.2 kg 40.2 kg General appearance: PRESENT: no acute distress, cooperative, thin - Cachectic, well-developed, well-nourished Head exam: PRESENT: atraumatic, normocephalic Eye exam: PRESENT: conjunctiva pink, EOMI, PERRLA. ABSENT: scleral icterus Ear exam: PRESENT: normal external ear exam Mouth exam: PRESENT: moist, tongue midline Teeth exam: PRESENT: poor dentation Respiratory exam: PRESENT: clear to auscultation michelle, symmetrical, unlabored. ABSENT: rales, rhonchi, wheezes Cardiovascular exam: PRESENT: RRR, +S1, +S2. ABSENT: diastolic murmur, rubs, systolic murmur Pulses: PRESENT: normal dorsalis pedis pul Vascular exam: PRESENT: normal capillary refill GI/Abdominal exam: PRESENT: normal bowel sounds, soft. ABSENT: distended, guarding, mass, organolmegaly, rebound, tenderness Rectal exam: PRESENT: deferred Extremities exam: PRESENT: full ROM. ABSENT: calf tenderness, clubbing, pedal edema Neurological exam: PRESENT: alert, awake, oriented to person, CN II-XII grossly intact, other - Baseline mentation per family. ABSENT: motor sensory deficit Psychiatric exam: PRESENT: appropriate affect, normal mood. ABSENT: homicidal ideation, suicidal ideation Skin exam: PRESENT: dry, intact, warm. ABSENT: cyanosis, rash Results Laboratory Results: 06/21/19 05:27 06/23/19 04:43 06/23/19 06/23/19 04:43 13:40 Sodium 146.2 H Potassium 3.1 L Chloride 112 H Carbon Dioxide 29 Anion Gap 5 BUN 7 Creatinine 0.54 Est GFR ( Amer) > 60 Glucose 93 Calcium 8.7 Urine Color YELLOW Urine Appearance CLEAR Urine pH 7.0 Ur Specific [place] 1.009 Urine Protein NEGATIVE Urine Glucose (UA) NEGATIVE Urine Ketones NEGATIVE Urine Blood MODERATE H Urine RBC (Auto) 5 06/19/19 06/19/19 06/19/19 16:32 16:32 17:41 Creatine Kinase Cancelled 409 H CK-MB (CK-2) Troponin I Cancelled 06/19/19 06/19/19 06/19/19 20:52 23:12 23:12 Creatine Kinase 342 H CK-MB (CK-2) 4.69 H Troponin I 0.079 0.087 06/20/19 06/20/19 06/20/19 05:00 05:00 12:10 Creatine Kinase 257 H 205 H CK-MB (CK-2) 3.58 Troponin I 0.060 06/20/19 12:10 Creatine Kinase CK-MB (CK-2) 2.86 Troponin I 0.041 Impressions: Chest X-Ray 06/19/19 15:32 IMPRESSION: 1. Emphysematous change without definite acute cardiopulmonary process. 2. Midthoracic compression deformity with greater than 60% anterior height loss, chronicity uncertain secondary to lack of priors. Recommend correlation with patient symptoms. Head CT 06/19/19 15:33 IMPRESSION: CHRONIC RIGHT TEMPORAL INFARCT, PARENCHYMAL VOLUME LOSS AND SEQUELAE OF MICROANGIOPATHIC DISEASE. NO EVIDENCE OF ACUTE INTRACRANIAL PROCESS. EVIDENCE OF ACUTE STROKE: NO. Knee X-Ray 06/19/19 15:34 IMPRESSION: No evidence of acute bony abnormality of the right knee. Shoulder X-Ray 06/19/19 15:34 IMPRESSION: No acute bony abnormality. Decreased osseous mineralization with mild acromioclavicular and glenohumeral osteoarthropathy. KUB X-Ray 06/21/19 00:00 IMPRESSION: Nonobstructive bowel gas pattern with a moderate burden of fecal material within the colon and rectum - correlate clinically for constipation. Assessment and Plan - Diagnosis (1) UTI (urinary tract infection), bacterial Is this a current diagnosis for this admission?: Yes Plan: Urinalysis is positive for UTI. Urine culture shows group B streptococcus. Leukocytosis has resolved. Received 3 days of IV Rocephin. Encourage p.o. intake. (2) Acute encephalopathy Is this a current diagnosis for this admission?: Yes Plan: Improving; now alert to self, conversational and socially appropriate. At baseline per family. Likely secondary to urinary tract infection, constipation, dehydration in the presence of advanced dementia. Have asked for a one-to-one sitter for safety. Nursing has notified the nursing tubing supervisor and requested that the patient's roommate be moved closer to the nursing station. Fall precautions. (3) Chronic dementia Is this a current diagnosis for this admission?: Yes Plan: Likely approaching baseline. Continue patient home medication regiment. Supportive care. Fall precautions. Remaining management as above. (4) Multiple contusions Is this a current diagnosis for this admission?: Yes Plan: Secondary to multiple falls at home. Wound care per nursing protocol as indicated. (5) Tobacco abuse Is this a current diagnosis for this admission?: Yes Plan: Nicotine replacement therapies provided. (6) Hypokalemia Is this a current diagnosis for this admission?: Yes Plan: Gradual improvements; 3.5-> 2.9-> 3.3-> 3.1-> 3.1 Magnesium 2.0. Additional oral replacement today. Encourage p.o. intake. Follow-up chemistry. (7) Constipation Is this a current diagnosis for this admission?: Yes Plan: Resolved KUB revealed large stool burden Continue Colace twice daily. Milk of Mag today. Dulcolax suppository x 1. Molasses enema x 1 (8) Urinary retention Is this a current diagnosis for this admission?: Yes Plan: Acute urinary retention. Likely secondary to UTI and massive constipation. Repeat UA negative. Constipation is resolved. Start Flomax Bladder scan every 6 hours and straight cath as needed. - Time Time Spent with patient: 25-34 minutes Medications reviewed and adjusted accordingly: Yes Anticipated discharge: Home with Homehealth Within: within 24 hours - pending resolution of urinary retention and improved p.o. intake
[2019-06-23] MEDS: TAMSULOSIN HCL 0.4 MG CAP.SR.24H PO SCH (21:27)
[2019-06-24] MEDS: DONEPEZIL HCL 5 MG TABLET PO SCH ×2 (00:11→18:41)
[2019-06-24] MEDS: HEPARIN SOD (PORCINE) 5,000 UNIT/ML 1 ML VIAL SUBCUT SCH ×2 (05:09→14:41)
[2019-06-24 05:19] LABS: HEMATOCRIT 38.6 % (36.0-47.0); HEMOGLOBIN 13.1 g/dL (12.0-15.5); MEAN CORPUSCULAR HEMOGLOBIN 30.2 pg (27.0-33.4); MEAN CORPUSCULAR HGB CONC 33.9 g/dL (32.0-36.0); MEAN CORPUSCULAR VOLUME 89 fl (80-97); PLATELET COUNT 323 10^3/uL (150-450); RED BLOOD COUNT 4.33 10^6/uL (3.72-5.28); RED CELL DISTRIBUTION WIDTH 13.9 % (11.5-14.0); WHITE BLOOD COUNT 6.8 10^3/uL (4.0-10.5)
[2019-06-24 05:42] LABS: ANION GAP 8 (5-19); BLOOD UREA NITROGEN 11 mg/dL (7-20); CALCIUM 8.8 mg/dL (8.4-10.2); CARBON DIOXIDE 25 mmol/L (22-30); CHLORIDE 109 mmol/L (98-107); GLUCOSE 119 mg/dL (75-110); POTASSIUM 3.2 mmol/L (3.6-5.0)
[2019-06-24] MEDS: POTASSI CL 20 MEQ/50 ML RIDER 20 MEQ/50 ML RTUPB IV SCH ×2 (09:11→10:39)
[2019-06-24] MEDS: MULTIVITAMIN TABLET PO SCH (09:12)
[2019-06-24] MEDS: DOCUSATE SODIUM 100 MG CAPSULE PO SCH ×2 (09:12→18:41)
[2019-06-24] MEDS: FAMOTIDINE 20 MG TABLET PO SCH (09:12)
[2019-06-24] MEDS: NICOTINE 14 MG/24 HR PATCH.TD24 TD SCH (09:15)
--- NOTE | 2019-06-24 13:00 | PDOC PROGRESS REPORT ---
Subjective Progress Note for:: 06/24/19 Subjective:: The patient had a 79-year-old female with a past medical history of dementia, who is ambulatory at baseline, nonverbal, continues to be tobacco dependent and was admitted to the hospitalist service 06/19/2019 for increased falls, acute encephalopathy, and urinary tract infection. Patient was seen on morning rounds. She was found resting in bed comfortably on room air. She was sleeping, but woke easily. She was A&O to self. She makes eye contact and mumbles in response to questions. ROS is otherwise limited. She does appear to be comfortable and is not noted to be in any acute distress. No concerns per nursing. Decreased need for straight caths overnight. Reason For Visit: URINARY TRACT INFECTION,DEMENTIA,MENTAL STATUS Physical Exam Vital Signs: Temp Pulse Resp BP Pulse Ox 98.4 F 84 16 133/86 H 94 06/24/19 08:22 06/24/19 08:22 06/24/19 08:22 06/24/19 08:22 06/24/19 08:22 Intake & Output 06/23/19 06/24/19 06/25/19 06:59 06:59 06:59 Intake Total 100 250 37 Output Total 2650 1003 Balance -2550 -753 37 Weight 40.2 kg 40.5 kg General appearance: PRESENT: no acute distress, cooperative, thin, well- developed Head exam: PRESENT: atraumatic, normocephalic Eye exam: PRESENT: conjunctiva pink, EOMI, PERRLA. ABSENT: scleral icterus Ear exam: PRESENT: normal external ear exam Mouth exam: PRESENT: moist, tongue midline Respiratory exam: PRESENT: clear to auscultation michelle, symmetrical, unlabored. ABSENT: rales, rhonchi, wheezes Cardiovascular exam: PRESENT: RRR. ABSENT: diastolic murmur, rubs, systolic murmur Pulses: PRESENT: normal dorsalis pedis pul Vascular exam: PRESENT: normal capillary refill GI/Abdominal exam: PRESENT: normal bowel sounds, soft. ABSENT: distended, guarding, mass, organolmegaly, rebound, tenderness Rectal exam: PRESENT: deferred Extremities exam: PRESENT: full ROM. ABSENT: calf tenderness, clubbing, pedal edema Neurological exam: PRESENT: alert, awake, oriented to person, CN II-XII grossly intact, other - At baseline. ABSENT: motor sensory deficit Psychiatric exam: PRESENT: appropriate affect, normal mood. ABSENT: homicidal ideation, suicidal ideation Skin exam: PRESENT: dry, intact, warm. ABSENT: cyanosis, rash Results Laboratory Results: 06/24/19 04:52 06/24/19 04:52 06/23/19 06/24/19 06/24/19 13:40 04:52 04:52 WBC 6.8 RBC 4.33 Hgb 13.1 Hct 38.6 MCV 89 MCH 30.2 MCHC 33.9 RDW 13.9 Plt Count 323 Sodium 141.5 Potassium 3.2 L Chloride 109 H Carbon Dioxide 25 Anion Gap 8 BUN 11 Creatinine 0.62 Est GFR ( Amer) > 60 Glucose 119 H Calcium 8.8 Urine Color YELLOW Urine Appearance CLEAR Urine pH 7.0 Ur Specific [place] 1.009 Urine Protein NEGATIVE Urine Glucose (UA) NEGATIVE Urine Ketones NEGATIVE Urine Blood MODERATE H Urine RBC (Auto) 5 06/19/19 06/19/19 06/19/19 16:32 16:32 17:41 Creatine Kinase Cancelled 409 H CK-MB (CK-2) Troponin I Cancelled 06/19/19 06/19/19 06/19/19 20:52 23:12 23:12 Creatine Kinase 342 H CK-MB (CK-2) 4.69 H Troponin I 0.079 0.087 06/20/19 06/20/19 06/20/19 05:00 05:00 12:10 Creatine Kinase 257 H 205 H CK-MB (CK-2) 3.58 Troponin I 0.060 06/20/19 12:10 Creatine Kinase CK-MB (CK-2) 2.86 Troponin I 0.041 Impressions: Chest X-Ray 06/19/19 15:32 IMPRESSION: 1. Emphysematous change without definite acute cardiopulmonary process. 2. Midthoracic compression deformity with greater than 60% anterior height loss, chronicity uncertain secondary to lack of priors. Recommend correlation with patient symptoms. Head CT 06/19/19 15:33 IMPRESSION: CHRONIC RIGHT TEMPORAL INFARCT, PARENCHYMAL VOLUME LOSS AND SEQUELAE OF MICROANGIOPATHIC DISEASE. NO EVIDENCE OF ACUTE INTRACRANIAL PROCESS. EVIDENCE OF ACUTE STROKE: NO. Knee X-Ray 06/19/19 15:34 IMPRESSION: No evidence of acute bony abnormality of the right knee. Shoulder X-Ray 06/19/19 15:34 IMPRESSION: No acute bony abnormality. Decreased osseous mineralization with mild acromioclavicular and glenohumeral osteoarthropathy. KUB X-Ray 06/21/19 00:00 IMPRESSION: Nonobstructive bowel gas pattern with a moderate burden of fecal material within the colon and rectum - correlate clinically for constipation. Assessment and Plan - Diagnosis (1) UTI (urinary tract infection), bacterial Is this a current diagnosis for this admission?: Yes Plan: Resolved; repeat urinalysis is negative. Urinalysis is positive for UTI. Urine culture shows group B streptococcus. Leukocytosis has resolved. Received 3 days of IV Rocephin. Encourage p.o. intake. (2) Acute encephalopathy Is this a current diagnosis for this admission?: Yes Plan: Resolved; now alert to self, conversational and socially appropriate. At baseline per family. Likely secondary to urinary tract infection, constipation, dehydration in the presence of advanced dementia. Fall precautions. (3) Chronic dementia Is this a current diagnosis for this admission?: Yes Plan: At baseline. Continue patient home medication regiment. Supportive care. Fall precautions. Remaining management as above. (4) Multiple contusions Is this a current diagnosis for this admission?: Yes Plan: Secondary to multiple falls at home. Wound care per nursing protocol as indicated. (5) Tobacco abuse Is this a current diagnosis for this admission?: Yes Plan: Nicotine replacement therapies provided. (6) Hypokalemia Is this a current diagnosis for this admission?: Yes Plan: Gradual improvements Magnesium 2.0. K-riders today. Encourage p.o. intake. Follow-up chemistry. (7) Constipation Is this a current diagnosis for this admission?: Yes Plan: Resolved KUB revealed large stool burden Continue Colace twice daily. Milk of Mag today. Dulcolax suppository x 1. Molasses enema x 1 (8) Urinary retention Is this a current diagnosis for this admission?: Yes Plan: Acute urinary retention. Improved; decreased need for straight caths overnight. Likely secondary to UTI and massive constipation. Repeat UA negative. Constipation is resolved. Start Flomax Post void bladder scan today. - Time Time Spent with patient: 15-24 minutes Medications reviewed and adjusted accordingly: Yes Anticipated discharge: Home with Homehealth Within: within 24 hours
[2019-06-24] MEDS: TAMSULOSIN HCL 0.4 MG CAP.SR.24H PO SCH (18:41)
[2019-06-25] MEDS: HEPARIN SOD (PORCINE) 5,000 UNIT/ML 1 ML VIAL SUBCUT SCH ×4 (01:03→21:48)
[2019-06-25] MEDS: FAMOTIDINE 20 MG TABLET PO SCH ×3 (01:03→21:51)
[2019-06-25 06:24] LABS: ANION GAP 5 (5-19); BLOOD UREA NITROGEN 12 mg/dL (7-20); CALCIUM 9.1 mg/dL (8.4-10.2); CARBON DIOXIDE 29 mmol/L (22-30); CHLORIDE 111 mmol/L (98-107); GLUCOSE 106 mg/dL (75-110); POTASSIUM 4.2 mmol/L (3.6-5.0)
[2019-06-25] MEDS: DOCUSATE SODIUM 100 MG CAPSULE PO SCH (10:44)
[2019-06-25] MEDS: MULTIVITAMIN TABLET PO SCH (10:44)
[2019-06-25] MEDS: NICOTINE 14 MG/24 HR PATCH.TD24 TD SCH (10:44)
--- NOTE | 2019-06-25 16:51 | PDOC PROGRESS REPORT ---
Subjective Progress Note for:: 06/25/19 Subjective:: The patient had a 79-year-old female with a past medical history of dementia, who is ambulatory at baseline, nonverbal, continues to be tobacco dependent and was admitted to the hospitalist service 06/19/2019 for increased falls, acute encephalopathy, and urinary tract infection. Patient was seen on afternoon rounds. She was found sitting up to the edge of the bed, comfortably, on room air. She was A&O to self, answers simple questions and follows directions. She reports she is feeling well and asks to go home. ROS is otherwise limited. She does appear to be comfortable and is not noted to be in any acute distress. No concerns per nursing. Reason For Visit: URINARY TRACT INFECTION,DEMENTIA,MENTAL STATUS Physical Exam Vital Signs: Temp Pulse Resp BP Pulse Ox 97.6 F 116 H 16 129/83 H 93 06/25/19 12:15 06/25/19 14:00 06/25/19 12:15 06/25/19 12:15 06/25/19 12:15 Intake & Output 06/24/19 06/25/19 06/26/19 06:59 06:59 06:59 Intake Total 250 337 Output Total 1003 1100 Balance -753 -763 Weight 40.5 kg 43.6 kg General appearance: PRESENT: no acute distress, cooperative, thin, well-develo ped, well-nourished Head exam: PRESENT: atraumatic, normocephalic Eye exam: PRESENT: conjunctiva pink, EOMI, PERRLA. ABSENT: scleral icterus Ear exam: PRESENT: normal external ear exam Mouth exam: PRESENT: moist, tongue midline Respiratory exam: PRESENT: clear to auscultation michelle, symmetrical, unlabored. ABSENT: rales, rhonchi, wheezes Cardiovascular exam: PRESENT: RRR, +S1, +S2. ABSENT: diastolic murmur, rubs, systolic murmur Pulses: PRESENT: normal dorsalis pedis pul Vascular exam: PRESENT: normal capillary refill GI/Abdominal exam: PRESENT: normal bowel sounds, soft. ABSENT: distended, guarding, mass, organolmegaly, rebound, tenderness Rectal exam: PRESENT: deferred Gentrourinary exam: PRESENT: indwelling catheter Extremities exam: PRESENT: full ROM. ABSENT: calf tenderness, clubbing, pedal edema Neurological exam: PRESENT: alert, awake, oriented to person, CN II-XII grossly intact, other - pleasantly confused. ABSENT: motor sensory deficit Psychiatric exam: PRESENT: appropriate affect, normal mood. ABSENT: homicidal ideation, suicidal ideation Skin exam: PRESENT: dry, intact, warm. ABSENT: cyanosis, rash Results Laboratory Results: 06/24/19 04:52 06/25/19 05:36 06/25/19 05:36 Sodium 144.9 Potassium 4.2 Chloride 111 H Carbon Dioxide 29 Anion Gap 5 BUN 12 Creatinine 0.74 Est GFR ( Amer) > 60 Glucose 106 Calcium 9.1 06/19/19 20:52 Blood Blood Culture - Final NO GROWTH IN 5 DAYS 06/19/19 20:52 Blood Blood Culture - Final NO GROWTH IN 5 DAYS 06/19/19 16:32 Blood Blood Culture - Final NO GROWTH IN 5 DAYS 06/19/19 06/19/19 06/19/19 16:32 16:32 17:41 Creatine Kinase Cancelled 409 H CK-MB (CK-2) Troponin I Cancelled 06/19/19 06/19/19 06/19/19 20:52 23:12 23:12 Creatine Kinase 342 H CK-MB (CK-2) 4.69 H Troponin I 0.079 0.087 06/20/19 06/20/19 06/20/19 05:00 05:00 12:10 Creatine Kinase 257 H 205 H CK-MB (CK-2) 3.58 Troponin I 0.060 06/20/19 12:10 Creatine Kinase CK-MB (CK-2) 2.86 Troponin I 0.041 Impressions: Chest X-Ray 06/19/19 15:32 IMPRESSION: 1. Emphysematous change without definite acute cardiopulmonary process. 2. Midthoracic compression deformity with greater than 60% anterior height loss, chronicity uncertain secondary to lack of priors. Recommend correlation with patient symptoms. Head CT 06/19/19 15:33 IMPRESSION: CHRONIC RIGHT TEMPORAL INFARCT, PARENCHYMAL VOLUME LOSS AND SEQUELAE OF MICROANGIOPATHIC DISEASE. NO EVIDENCE OF ACUTE INTRACRANIAL PROCESS. EVIDENCE OF ACUTE STROKE: NO. Knee X-Ray 06/19/19 15:34 IMPRESSION: No evidence of acute bony abnormality of the right knee. Shoulder X-Ray 06/19/19 15:34 IMPRESSION: No acute bony abnormality. Decreased osseous mineralization with mild acromioclavicular and glenohumeral osteoarthropathy. KUB X-Ray 06/21/19 00:00 IMPRESSION: Nonobstructive bowel gas pattern with a moderate burden of fecal material within the colon and rectum - correlate clinically for constipation. Assessment and Plan - Diagnosis (1) UTI (urinary tract infection), bacterial Is this a current diagnosis for this admission?: Yes Plan: Resolved; repeat urinalysis is negative. Urinalysis is positive for UTI. Urine culture shows group B streptococcus. Leukocytosis has resolved. Received 3 days of IV Rocephin. Encourage p.o. intake. (2) Acute encephalopathy Is this a current diagnosis for this admission?: Yes Plan: Resolved; now alert to self, conversational and socially appropriate. At baseline per family. Likely secondary to urinary tract infection, constipation, dehydration in the presence of advanced dementia. Fall precautions. (3) Chronic dementia Is this a current diagnosis for this admission?: Yes Plan: At baseline. Continue patient home medication regiment. Supportive care. Fall precautions. Remaining management as above. (4) Multiple contusions Is this a current diagnosis for this admission?: Yes Plan: Secondary to multiple falls at home. Wound care per nursing protocol as indicated. (5) Tobacco abuse Is this a current diagnosis for this admission?: Yes Plan: Nicotine replacement therapies provided. (6) Hypokalemia Is this a current diagnosis for this admission?: Yes Plan: Resolved. Magnesium 2.0. Encourage p.o. intake. (7) Constipation Is this a current diagnosis for this admission?: Yes Plan: Resolved KUB revealed large stool burden Continue Colace twice daily. Milk of Mag today. Dulcolax suppository x 1. Molasses enema x 1 (8) Urinary retention Is this a current diagnosis for this admission?: Yes Plan: Acute urinary retention. Unfortunately persisted despite decreasing frequency of straight caths. Likely secondary to UTI and massive constipation. Repeat UA negative. Constipation is resolved. Continue Flomax Green catheter. Urology follow up. - Time Time Spent with patient: 15-24 minutes Medications reviewed and adjusted accordingly: Yes Anticipated discharge: Home with Homehealth Within: within 24 hours
[2019-06-25] MEDS: TAMSULOSIN HCL 0.4 MG CAP.SR.24H PO SCH (18:01)
[2019-06-25] MEDS: DONEPEZIL HCL 5 MG TABLET PO SCH (18:01)
[2019-06-25] MEDS: DOCUSATE SODIUM 100 MG/10 ML UDC PO SCH (18:01)
[2019-06-26] MEDS: HEPARIN SOD (PORCINE) 5,000 UNIT/ML 1 ML VIAL SUBCUT SCH ×2 (05:20→14:03)
[2019-06-26] MEDS: DOCUSATE SODIUM 100 MG/10 ML UDC PO SCH ×3 (10:28→17:18)
[2019-06-26] MEDS: FAMOTIDINE 20 MG TABLET PO SCH (10:32)
[2019-06-26] MEDS: MULTIVITAMIN TABLET PO SCH (10:32)
[2019-06-26] MEDS: NICOTINE 14 MG/24 HR PATCH.TD24 TD SCH (10:32)
[2019-06-26 14:17] VITALS: BP 141/81
[2019-06-26] MEDS: TAMSULOSIN HCL 0.4 MG CAP.SR.24H PO SCH (17:18)
[2019-06-26] MEDS: DONEPEZIL HCL 5 MG TABLET PO SCH (17:18)
--- NOTE | 2019-06-27 12:19 | PDOC DISCHARGE SUMMARY ---
Impression - Admit/DC Date/PCP Admission Date/Primary Care Provider: 06/19/19 18:52 MAYO RATLIFF MD Discharge Date: 06/26/19 - Discharge Diagnosis (1) UTI (urinary tract infection), bacterial Is this a current diagnosis for this admission?: Yes (2) Acute encephalopathy Is this a current diagnosis for this admission?: Yes (3) Chronic dementia Is this a current diagnosis for this admission?: Yes (4) Multiple contusions Is this a current diagnosis for this admission?: Yes (5) Tobacco abuse Is this a current diagnosis for this admission?: Yes (6) Hypokalemia Is this a current diagnosis for this admission?: Yes (7) Constipation Is this a current diagnosis for this admission?: Yes (8) Urinary retention Is this a current diagnosis for this admission?: Yes - Additional Information Resuscitation Status: Do Not Resuscitate Discharge Diet: As Tolerated, Regular Discharge Activity: Activity As Tolerated, Balance Activity w/Rest, Slowly Increase Activity, Supervised Activity Referrals: [facility] [Provider Group] - 07/07/19 9:45 am MAYO RATLIFF MD [Primary Care Provider] - 07/11/19 10:45 am Prescriptions: Buspirone HCl [Buspar 5 mg Tablet] 1 tab PO ASDIR PRN #45 tab PRN Reason: Tamsulosin HCl [Flomax 0.4 mg Cap.sr] 0.4 mg PO PCSUPPER #30 cap.sr.24h Nicotine [Nicoderm 14 mg/24 Hr Transdermal Patch] 1 each TD DAILY #30 patch.td24 Home Medications: Cholecalciferol (Vitamin D3) [Vitamin D3 1000 Unit Tablet] 1,000 unit PO DAILY 06/19/19 Donepezil HCl [Aricept] 10 mg PO WSUPPER 06/19/19 Memantine HCl [Memantine HCl ER] 28 mg PO WSUPPER 06/19/19 Multivitamin [Tab-A-Casa (Multiple Vitamin) Tablet] 1 tab PO DAILY 06/19/19 Acetaminophen [Tylenol 325 mg Tablet] 650 mg PO Q4HP PRN tablet 06/25/19 Docusate Sodium [Colace Udc 100 mg/10 ml Oral Soln] 100 mg PO BID udc 06/25/19 Nicotine [Nicoderm 14 mg/24 Hr Transdermal Patch] 1 each TD DAILY #30 patch.td24 06/25/19 Tamsulosin HCl [Flomax 0.4 mg Cap.sr] 0.4 mg PO PCSUPPER #30 cap.sr.24h 06/25/19 Buspirone HCl [Buspar 5 mg Tablet] 1 tab PO ASDIR PRN #45 tab 06/26/19 History of Present Illiness History of Present Illness: Per H&P by Tyshawn Lawrence PA-C: FITO RUFFIN is a 79 year old female who has a 7-year history of dementia,. Son gives me all of the history as patient is too confused and demented. Last week patient has been more confused however and is been falling more often.. He has actually seen the patient fall 3 times in the last week. Prior to this last week she was up and ambulatory even though she was demented. Somewhere in the last month she is also lost her dentures.. Patient is now mumbling which is a new physical finding and she is picking at her sheets. She smokes about a half a pack of cigarettes per day. Patient is a DNR. She is still currently lives at home but she has pretty much full-time caregivers. At time of discharge there may be some discussion about assisted facility. He has already been in this discussion. Patient's labs are not all back from the emergency room but I have gone ahead and admit her anyway, as it is 1845 hrs.. Count 14,800 H&H is stable Chemistry panel is pending. Urine shows moderate leukocytes moderate blood trace of ketones 30 protein Blood cultures and urine cultures are pending\ She will be admitted for IV gentle hydration broad-spectrum IV antibiotic. Son is aware that at the patient's medical condition and age this may be a life- threatening illness Hospital Course Hospital Course: (1) UTI (urinary tract infection), bacterial Resolved; repeat urinalysis is negative. Urinalysis is positive for UTI. Urine culture shows group B streptococcus. Leukocytosis has resolved. Received 3 days of IV Rocephin. Encourage p.o. intake. (2) Acute encephalopathy Resolved; now alert to self, conversational and socially appropriate. At baseline per family. Likely secondary to urinary tract infection, constipation, dehydration in the presence of advanced dementia. (3) Chronic dementia At baseline. Continue patient home medication regiment. Supportive care. Fall precautions. Remaining management as above. (4) Multiple contusions Secondary to multiple falls at home. Wound care per nursing protocol as indicated. Arrangements have been made for the patient to receive home health nursing, PT, OT, aide, and. (5) Tobacco abuse Nicotine replacement therapies provided. (6) Hypokalemia Resolved. Magnesium 2.0. Encourage p.o. intake. (7) Constipation KUB revealed large stool burden Continue home management to prevent constipation utilizing ovbo-non-cczhvgm preparations. (8) Urinary retention Acute urinary retention. Unfortunately this persisted despite decreasing frequency of straight caths. Likely secondary to UTI and massive constipation. Repeat UA negative. Constipation is resolved. Continue Flomax Green catheter. Urology follow up. Home health nursing for catheter care. Patient is discharged home with home health nursing into the care of her family members. She is now ambulatory at her baseline and eating with it. I do her p.o. intake and activity level will increase when she returns to her home/familiar environment She has been started on Flomax for her urinary retention. She is discharged with a Green catheter; unfortunately, despite 2 days of progressively decreasing frequency of straight cath, the patient continued to have urinary retention. The patient is started on twice daily BuSpar for management of restlessness/anxiety. She should follow-up with her primary care provider with 1 week, with a urologist within 4 to 6 weeks, and return to the emergency department as needed for concerning. Physical Exam Vital Signs: Temp Pulse Resp BP Pulse Ox 98.1 F 73 16 141/81 H 93 06/26/19 14:13 06/26/19 14:13 06/26/19 14:13 06/26/19 14:13 06/26/19 14:13 Intake & Output 06/26/19 06/27/19 06/28/19 06:59 06:59 06:59 Intake Total 1025 Output Total 750 Balance 275 Weight 46.1 kg General appearance: PRESENT: no acute distress, thin, well-developed Head exam: PRESENT: atraumatic, normocephalic Eye exam: PRESENT: conjunctiva pink, EOMI, PERRLA. ABSENT: scleral icterus Ear exam: PRESENT: normal external ear exam Mouth exam: PRESENT: moist, tongue midline Neck exam: ABSENT: carotid bruit, JVD, lymphadenopathy, thyromegaly Respiratory exam: PRESENT: clear to auscultation michelle, symmetrical, unlabored. ABSENT: rales, rhonchi, wheezes Cardiovascular exam: PRESENT: RRR, +S1, +S2. ABSENT: diastolic murmur, rubs, systolic murmur Pulses: PRESENT: normal dorsalis pedis pul Vascular exam: PRESENT: normal capillary refill GI/Abdominal exam: PRESENT: normal bowel sounds, soft. ABSENT: distended, guarding, mass, organolmegaly, rebound, tenderness Rectal exam: PRESENT: deferred Gentrourinary exam: PRESENT: indwelling catheter Extremities exam: PRESENT: full ROM. ABSENT: calf tenderness, clubbing, pedal edema Musculoskeletal exam: PRESENT: ambulatory Neurological exam: PRESENT: alert, awake, oriented to person, CN II-XII grossly intact, other - At baseline mentation. ABSENT: motor sensory deficit Psychiatric exam: PRESENT: appropriate affect, normal mood. ABSENT: homicidal ideation, suicidal ideation Skin exam: PRESENT: dry, intact, warm. ABSENT: cyanosis, rash Results Laboratory Results: WBC 6.8 10^3/uL (4.0-10.5) 06/24/19 04:52 RBC 4.33 10^6/uL (3.72-5.28) 06/24/19 04:52 Hgb 13.1 g/dL (12.0-15.5) 06/24/19 04:52 Hct 38.6 % (36.0-47.0) 06/24/19 04:52 MCV 89 fl (80-97) 06/24/19 04:52 MCH 30.2 pg (27.0-33.4) 06/24/19 04:52 MCHC 33.9 g/dL (32.0-36.0) 06/24/19 04:52 RDW 13.9 % (11.5-14.0) 06/24/19 04:52 Plt Count 323 10^3/uL (150-450) 06/24/19 04:52 Lymph % (Auto) 8.5 % (13-45) L 06/20/19 05:00 [place] % (Auto) 8.8 % (3-13) 06/20/19 05:00 Eos % (Auto) 0.2 % (0-6) 06/20/19 05:00 Baso % (Auto) 0.5 % (0-2) 06/20/19 05:00 Absolute Neuts (auto) 8.1 10^3/uL (1.7-8.2) 06/20/19 05:00 Absolute Lymphs (auto) 0.8 10^3/uL (0.5-4.7) 06/20/19 05:00 Absolute Monos (auto) 0.9 10^3/uL (0.1-1.4) 06/20/19 05:00 Absolute Eos (auto) 0.0 10^3/uL (0.0-0.6) 06/20/19 05:00 Absolute Basos (auto) 0.0 10^3/uL (0.0-0.2) 06/20/19 05:00 Total Counted 100 06/19/19 16:32 Seg Neutrophils % 82.0 % (42-78) H 06/20/19 05:00 Seg Neuts % (Manual) 86 % (42-78) H 06/19/19 16:32 Band Neutrophils % 2 % (3-5) L 06/19/19 16:32 Lymphocytes % (Manual) 7 % (13-45) L 06/19/19 16:32 Monocytes % (Manual) 5 % (3-13) 06/19/19 16:32 Eosinophils % (Manual) 0 % (0-6) 06/19/19 16:32 Basophils % (Manual) 0 % (0-2) 06/19/19 16:32 Abs Neuts (Manual) 13.0 10^3/uL (1.7-8.2) H 06/19/19 16:32 Abs Lymphs (Manual) 1.0 10^3/uL (0.5-4.7) 06/19/19 16:32 Abs Monocytes (Manual) 0.7 10^3/uL (0.1-1.4) 06/19/19 16:32 Absolute Eos (Manual) 0.0 10^3/uL (0.0-0.6) 06/19/19 16:32 Abs Basophils (Manual) 0.0 10^3/uL (0.0-0.2) 06/19/19 16:32 Platelet Comment ADEQUATE 06/19/19 16:32 Anisocytosis SLIGHT 06/19/19 16:32 Sodium 144.9 mmol/L (137-145) 06/25/19 05:36 Potassium 4.2 mmol/L (3.6-5.0) 06/25/19 05:36 Chloride 111 mmol/L (98-107) H 06/25/19 05:36 Carbon Dioxide 29 mmol/L (22-30) 06/25/19 05:36 Anion Gap 5 (5-19) 06/25/19 05:36 BUN 12 mg/dL (7-20) 06/25/19 05:36 Creatinine 0.74 mg/dL (0.52-1.25) 06/25/19 05:36 Est GFR ( Amer) > 60 (>60) 06/25/19 05:36 Est GFR (Non-Af Amer) Cancelled 06/19/19 16:32 Est GFR (MDRD) Non-Af > 60 (>60) 06/25/19 05:36 Glucose 106 mg/dL (75-110) 06/25/19 05:36 POC Glucose 138 mg/dL (70-110) H 06/19/19 16:30 Lactic Acid 2.0 mmol/L (0.7-2.1) 06/19/19 16:32 Calcium 9.1 mg/dL (8.4-10.2) 06/25/19 05:36 Magnesium 2.0 mg/dL (1.6-2.3) 06/21/19 05:27 Total Bilirubin 1.5 mg/dL (0.2-1.3) H 06/19/19 17:41 Direct Bilirubin 0.4 mg/dL (0.0-0.4) 06/19/19 17:41 Neonat Total Bilirubin Not Reportable 06/19/19 17:41 Neonat Direct Bilirubin Not Reportable 06/19/19 17:41 Neonat Indirect Bili Not Reportable 06/19/19 17:41 AST 62 U/L (14-36) H 06/19/19 17:41 ALT 71 U/L (<35) 06/19/19 17:41 Alkaline Phosphatase 127 U/L (38-126) H 06/19/19 17:41 Ammonia < 8.7 umol/L (9-33) L 06/19/19 21:06 Creatine Kinase 205 U/L (30-135) H 06/20/19 12:10 CK-MB (CK-2) 2.86 ng/mL (<4.55) 06/20/19 12:10 Troponin I 0.041 ng/mL 06/20/19 12:10 Total Protein 7.7 g/dL (6.3-8.2) 06/19/19 17:41 Albumin 4.0 g/dL (3.5-5.0) 06/19/19 17:41 EGFR Cancelled 06/19/19 16:32 Urine Color YELLOW 06/23/19 13:40 Urine Appearance CLEAR 06/23/19 13:40 Urine pH 7.0 (5.0-9.0) 06/23/19 13:40 Ur Specific [place] 1.009 06/23/19 13:40 Urine Protein NEGATIVE mg/dL (NEGATIVE) 06/23/19 13:40 Urine Glucose (UA) NEGATIVE mg/dL (NEGATIVE) 06/23/19 13:40 Urine Ketones NEGATIVE mg/dL (NEGATIVE) 06/23/19 13:40 Urine Blood MODERATE (NEGATIVE) H 06/23/19 13:40 Urine Nitrite NEGATIVE (NEGATIVE) 06/19/19 16:49 Urine Nitrite (Reflex) NEGATIVE (NEGATIVE) 06/23/19 13:40 Urine Bilirubin NEGATIVE (NEGATIVE) 06/23/19 13:40 Urine Urobilinogen NEGATIVE mg/dL (<2.0) 06/23/19 13:40 Ur Leukocyte Esterase MODERATE (NEGATIVE) H 06/19/19 16:49 Leukocyte Esterase Rfl NEGATIVE (NEGATIVE) 06/23/19 13:40 Urine WBC (Auto) 100 /HPF 06/19/19 16:49 Urine RBC (Auto) 5 /HPF 06/23/19 13:40 U Hyaline Cast (Auto) 3 /LPF 06/19/19 16:49 Urine Bacteria (Auto) 1+ /HPF 06/19/19 16:49 Urine WBC (Reflex) 11 /HPF 06/23/19 13:40 Squamous Epi Cells Auto <1 /HPF 06/23/19 13:40 Amorphous Sediment Auto TRACE /HPF 06/19/19 16:49 Urine Mucus (Auto) RARE /LPF 06/23/19 13:40 Urine Ascorbic Acid NEGATIVE (NEGATIVE) 06/23/19 13:40 06/19/19 06/19/19 06/19/19 16:32 20:52 23:12 CK-MB (CK-2) 4.69 H Troponin I Cancelled 0.079 0.087 06/20/19 06/20/19 05:00 12:10 CK-MB (CK-2) 3.58 2.86 Troponin I 0.060 0.041 Impressions: Chest X-Ray 06/19/19 15:32 IMPRESSION: 1. Emphysematous change without definite acute cardiopulmonary process. 2. Midthoracic compression deformity with greater than 60% anterior height loss, chronicity uncertain secondary to lack of priors. Recommend correlation with patient symptoms. Head CT 06/19/19 15:33 IMPRESSION: CHRONIC RIGHT TEMPORAL INFARCT, PARENCHYMAL VOLUME LOSS AND SEQUELAE OF MICROANGIOPATHIC DISEASE. NO EVIDENCE OF ACUTE INTRACRANIAL PROCESS. EVIDENCE OF ACUTE STROKE: NO. Knee X-Ray 06/19/19 15:34 IMPRESSION: No evidence of acute bony abnormality of the right knee. Shoulder X-Ray 06/19/19 15:34 IMPRESSION: No acute bony abnormality. Decreased osseous mineralization with mild acromioclavicular and glenohumeral osteoarthropathy. KUB X-Ray 06/21/19 00:00 IMPRESSION: Nonobstructive bowel gas pattern with a moderate burden of fecal material within the colon and rectum - correlate clinically for constipation. Plan Plan of Treatment: The patient is discharged home in stable condition with home health nursing into the care of family members. She is discharged with Green in place secondary to urinary retention. She should follow-up with her primary care provider within 1 week. She should follow-up with urology within 4 to 6 weeks. Patient return to the emergency department as needed for concerning symptoms. Time Spent: Greater than 30 Minutes Stroke Is this a Stroke Patient?: No Acute Heart Failure - Is this a Heart Failure Patient?: No
== END 2019-06-26 18:30 | disposition home health service (06) | DRG 689 ==
LOC: ER 14:54 → EH 18:52 → 3S 22:24
PROVIDERS: ADMIT Internal Medicine; ATTEND Internal Medicine
DX: N39.0 Urinary tract infection, site not specified (principal); G93.41 Metabolic encephalopathy; R64 Cachexia; Z68.1 Body mass index [BMI] 19.9 or less, adult; E86.0 Dehydration; F03.90 Unspecified dementia, unspecified severity, without behavioral disturbance, psychotic disturbance, mood disturbance, and anxiety; B95.1 Streptococcus, group B, as the cause of diseases classified elsewhere; Z66 Do not resuscitate; R33.9 Retention of urine, unspecified; F17.210 Nicotine dependence, cigarettes, uncomplicated; R19.7 Diarrhea, unspecified; E87.6 Hypokalemia; K59.00 Constipation, unspecified; Z88.1 Allergy status to other antibiotic agents; Z23 Encounter for immunization; Z91.81 History of falling; T14.8XXA Other injury of unspecified body region, initial encounter; W19.XXXA Unspecified fall, initial encounter
CPT/HCPCS: 36415; 70450; 71046; 74018; 80048; 80053; 81001; 82140; 82550; 82553; 82962; 83605; 83735; 84484; 85025; 85027; 87040; 87086; 87088; 90686; 93005; 93010; 96360; 96361; 99285; J0696; J1630; J1644; J2060; J3480; J3490; J7030